=== PATIENT | female | born 1945 | race Caucasian/White ===

== ENCOUNTER 2020-04-20 09:18 | Outpatient (CLI) | payer OTHER, SELFPAY ==
--- NOTE | ~2020-04-20 | US_ITS ---
EXAMINATION: US art doppler w press LE BI DATE: 04/20/2020 11:28 INDICATION: Lower limb pain. TECHNIQUE: Segmental pressures and plethysmographic and Doppler waveforms of the brachial and lower e xtremity arteries were obtained. COMPARISON: None. FINDINGS: Right and left brachial artery pressures of 136 mm Hg and 134 mm Hg, respectively, are concordant (no rmal difference <= 30 mmHg). The right high thigh pressure index is 1.36 and (normal > 1.2). The left high thigh pressure index is unable to be obtained due to inability to occlude the vessels in the le ft thigh. The right ankle-brachial index (ANIYAH) is 1.16 (normal >= 0.9-1). The right great toe-brachial index (T BI) is 0.79 (normal >= 0.6-0.8). The right lower extremity segmental pressure gradients are normal (n ormal gradients <= 20-30 mmHg between adjacent levels on the same leg or the same levels on the two l egs). Arterial waveforms are triphasic at the right common femoral artery and biphasic more distally with brisk systolic upstrokes throughout. The left ANIYAH is 1.12. The left TBI is 0.70. The left lower extremity segmental pressure gradients are normal. Arterial waveforms are biphasic with brisk systolic upstrokes throughout. IMPRESSION: 1. Normal bilateral ABIs and TBIs. No significant occlusive disease. Reviewed, dictated and finalized at location A.
--- NOTE | ~2020-04-20 | US_ITS ---
EXAMINATION: US venous doppler [facility] DATE: 04/20/2020 11:27 INDICATION: Lower limb pain and varicose veins TECHNIQUE: Grayscale ultrasound images without and with compression and Doppler ultrasound images of the bilateral lower extremity veins were obtained. COMPARISON: None. FINDINGS: The visualized portions of right common femoral vein, profunda (deep) femoral vein, femoral vein, pop liteal vein, posterior tibial veins, peroneal veins, gastrocnemius vein and greater saphenous vein ou tflow are patent. Right Standing Venous Mapping: reflux seconds duration; vein size. Greater saphenous origin: 0 seconds; 5.5 mm. Greater saphenous mid thigh:------ 0 seconds; 4.0 mm. Greater saphenous below knee:--- 1.6 seconds; 4.7 mm. Greater saphenous at the ankle:--- 2.2 seconds; 3.7 mm. Lesser saphenous proximally:------ >5 seconds; 4.5 mm. Lesser saphenous distally: >5 seconds; 2.5 mm. The visualized portions of left common femoral vein, profunda femoral vein, femoral vein, popliteal v ein, posterior tibial veins, peroneal veins, gastrocnemius vein and greater saphenous vein outflow ar e patent. Left Standing Venous Mapping: reflux seconds duration; vein size. Greater saphenous origin: 0 seconds; 5.0 mm. Greater saphenous mid thigh:------ 0 seconds; 3.3 mm. Greater saphenous below knee:--- 2.0 seconds; 2.4 mm. Lesser saphenous proximally:------ 0 seconds; 1.6 mm. Lesser saphenous distally: 0 seconds; 2.5 mm. IMPRESSION: 1. No deep venous thrombosis in either lower limb. 2. Significant reflux of >5 second duration in the right lesser saphenous vein. Reviewed, dictated and finalized at location A.
== END 2020-04-20 09:19 | disposition home or self-care (01) ==
PROVIDERS: PCP Internal Medicine; Visit Provider Internal Medicine Cardiovascular Disease
DX: I83.90 Asymptomatic varicose veins of unspecified lower extremity (principal); M79.669 Pain in unspecified lower leg
CPT/HCPCS: 93923; 93970

== ENCOUNTER 2021-01-25 09:07 | Emergency (ER) | payer OTHER, SELFPAY ==
--- NOTE | ~2021-01-25 | XR_ITS ---
EXAMINATION: XR shoulder RT min 2V DATE: 01/25/2021 09:48 INDICATION: Right shoulder injury and pain. TECHNIQUE: 5 views of right shoulder were obtained. COMPARISON: None. FINDINGS: Bone alignment is normal. No fracture. There is mild osteoarthritis of glenohumeral joint a nd moderate osteoarthritis of acromioclavicular joint. IMPRESSION: 1. Polyarticular osteoarthritis. Reviewed, dictated and finalized at location B.
--- NOTE | ~2021-01-25 | XR_ITS ---
EXAMINATION: XR forearm RT 2V DATE: 01/25/2021 09:48 INDICATION: Right forearm injury. TECHNIQUE: 2 views of right forearm were obtained. COMPARISON: None. FINDINGS: Bone alignment is normal. No fracture. There is mild osteoarthritis of the elbow joint and triscaphe joint and moderate osteoarthritis of first carpometacarpal joint. IMPRESSION: 1. Polyarticular osteoarthritis. Reviewed, dictated and finalized at location B.
[2021-01-25 09:12] VITALS: BP 136/90; PULSE 87; RESP 14; TEMP 36.9; O2SAT 99
--- NOTE | 2021-01-25 09:37 | ED.FALL ---
HPI - Fall General Chief Complaint: Fall Stated Complaint: fall Time Seen by Provider: 01/25/21 09:13 History of Present Illness HPI Narrative: 75 yo female presents from home for arm pain. She fell onto her right arm and shoulder 2 days ago. She has had pain in the right shoulder and forearm since that time. The pain is worse with any active movement at the shoulder or elbow. No pain in the elbow. No wound, swelling, weakness, numbness, fever. Related Data Home Medications Medication Instructions Recorded Confirmed cholecalciferol (vitamin D3) 25 1,000 unit PO DAILY 08/17/19 11/25/20 mcg (1,000 unit) capsule coenzyme Q10 100 mg capsule 200 mg PO DAILY cap 08/17/19 11/25/20 lutein 25 mg-zeaxanthin 5 mg cap PO 08/17/19 11/25/20 capsule spironolactone 25 mg tablet 25 mg PO BID 08/17/19 11/25/20 thiamine HCl (vitamin B1) 50 mg 50 mg PO DAILY 08/17/19 11/25/20 tablet vitamins A,C,G-dizw-exidii 14,320 1 cap PO BID 08/01/20 11/25/20 unit-226 mg-200 unit capsule apixaban 5 mg tablet 5 mg PO BID 11/25/20 11/25/20 aspirin 81 mg tablet,delayed 81 mg PO DAILY 11/25/20 11/25/20 release atorvastatin 20 mg tablet 20 mg PO DAILY 11/25/20 11/25/20 diltiazem HCl 120 mg 120 mg PO DAILY 11/25/20 11/25/20 capsule,extended release 24 hr magnesium oxide 400 mg PO DAILY 11/25/20 11/25/20 metformin 750 mg tablet,extended 750 mg PO BID tablet 11/25/20 11/25/20 release 24 hr multivitamin 1 tablet PO DAILY 11/25/20 11/25/20 Allergies Allergy/AdvReac Type Severity Reaction Status Date / Time levetiracetam Allergy Severe Hives Verified 01/25/21 09:18 Review of Systems Review of Systems: All systems reviewed & are unremarkable except as noted in HPI and below Constitutional: Constitutional: Denies chills and Denies fever(s) Eyes: Eyes: Denies no additional eye complaints ENT: Denies dizziness Cardiovascular: Cardiovascular: Denies chest pain Respiratory: Respiratory: Denies dyspnea Gastrointestinal: Gastrointestinal: Denies abdominal pain and Denies nausea Neurologic: Denies dizziness, Denies numbness and Denies weakness [facility] Past Medical History Medical History Aortic valve stenosis Cerebrovascular accident (CVA) Chronic diastolic (congestive) heart failure DM w/o complication type II Edema of extremities Essential (primary) hypertension Gastroesophageal reflux disease Heart murmur Orthostatic hypotension Other and unspecified hyperlipidemia Persistent headaches Primary osteoarthritis involving multiple joints Seizure SK (seborrheic keratosis) Family History Family History Father Family history of Alzheimer's disease Mother Family history of heart disease in male family member before age 55 Social History Social History Smoking status: Never smoker Second hand tobacco smoke exposure: No Alcohol intake: current Substance use: never Substance use type: does not use Exam Const: General: no acute distress and alert Orientation/consciousness: patient oriented x3 HENMT: Head: normal to inspection Neck: Neck: normal visual inspection Resp: Effort & Inspection: normal respiratory effort Auscultation: clear to auscultation bilaterally Cardio: Rate: regular rate Rhythm: regular rhythm Skin: General skin exam: normal color Wounds: no wounds Neuro: General: patient oriented x3, moves all extremities, no focal motor deficits and CN's II-XI intact bilaterally Speech: normal speech Other: Grossly normal strength and sensation throughout. Mildly limited by pain Extrem: Other: Tenderness over right lateral deltoid. ROM limited by pain. Remainder of RUE exam normal. Course Vital Signs Vital signs: Vital Signs Temperature 36.9 C 01/25/21 09:12 Pulse Rate 87 01/25/21 09:12 Respiratory Rate 14 01/25/21 09
[2021-01-25] MEDS: traMADol HCL (*CRX) 50 MG TABLET PO (10:52)
[2021-01-25 11:00] VITALS: BP 138/86; PULSE 92; RESP 16; O2SAT 97
[2021-01-25 12:30] VITALS: BP 145/80; PULSE 83; RESP 20; O2SAT 100
== END 2021-01-25 12:40 | disposition home or self-care (01) ==
PROVIDERS: Emergency Provider Emergency Medicine; PCP Internal Medicine
DX: M79.601 Pain in right arm (principal); M19.90 Unspecified osteoarthritis, unspecified site; I11.0 Hypertensive heart disease with heart failure; I50.9 Heart failure, unspecified; E11.9 Type 2 diabetes mellitus without complications; K21.9 Gastro-esophageal reflux disease without esophagitis; E78.5 Hyperlipidemia, unspecified; Z79.84 Long term (current) use of oral hypoglycemic drugs
CPT/HCPCS: 73030; 73090; 99284; A4565; A9270

== ENCOUNTER 2021-06-27 12:30 | Outpatient (RCR) | payer OTHER, SELFPAY ==
[2021-04-17 13:27] VITALS: BP_SYST 95
--- NOTE | 2021-04-17 16:20 | PTOPEVAL ---
Thank you for referring Alexandria Kirkpatrick to [facility].? The patient is scheduled to be seen for therapy? 2 x/week for 6 weeks. Please review, sign, date and return this plan of care ANGEL. I agree with and certify that the following plan of care is medically necessary. Referring Physician Date Attending Provider: Lester June MD Diagnosis right shoulder DJD sand RTC tendonitis, left ankle instability Onset 01/25/21 Cause fall Additional Evaluation Detail She has a history of a fall in January 2021 landing on her right shoulder. She is inconsistent with using her quad cane or walker at home. She wants to get off the use of a device. She had piriformis syndrome in the past causing her left leg to get messed up . She has a history of a CVA ~ 4 yrs ago. She is a poor historian for medical history or timeline of current impairments. Subjective Information C/o of her right shoulder Query Text:As Reported By Patient/ being messed up . She has Family increased pain with lifting, reaching motion. She is limited with donning/doffing her bra. C/o constant pain in the shoulder joint and into right UE. 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 Denies pian at night. She was in a sling for a few weeks, but stopped due to neck pain. She received an injection on without relief of her pain. Diagnostic Tests X-Rays For This Problem Yes: moderate OA Pain Assessment Right Shoulder(s) Reported Pain Level 3 Pain Description Sharp Pain Frequency Continuous Lowest Pain Intensity 3 Greatest Pain Intensity 9 Pain Aggravating Factors ADL's,Exercise/Activity, Lifting Pain Behaviors Anxious Upper Extremity Range of Motion Scapular/ Shoulder Range of Motion Left Shoulder Flexion - Active 145 Shoulder Extension - Active 50 Shoulder Abduction - Active 145 Shoulder Medial Rotation -
--- NOTE | 2021-05-01 13:53 | PCPTNOTE ---
Patient called & cancelled scheduled appointment this date due to not feeling well.
--- NOTE | 2021-05-11 13:40 | PCPTNOTE ---
Patient called & cancelled scheduled appointment this date due to not feeling up to it today.
[2021-05-23 13:29] VITALS: BP_SYST 102
--- NOTE | 2021-05-24 12:38 | PTOPEVAL ---
Physical Therapy Progress Note Thank you for referring Alexandria Kirkpatrick to [facility].? Alexandria has received 10 therapy visits with 2 missed visits to address UE limitations. She demonstrates improved shoulder motion, improved pain and improved UE function. LE and functional impairments were assessed this date with goals update. The patient is scheduled to be seen for therapy? 2 x/week for 5 weeks. Please review, sign, date and return this plan of care ANGEL. I agree with and certify that the following plan of care is medically necessary. Referring Physician Date Attending Provider: Lester June MD Diagnosis right shoulder DJD sand RTC tendonitis, left ankle instability Onset 01/25/21 Cause fall Additional Evaluation Detail She has a history of a fall in January 2021 landing on her right shoulder. She is inconsistent with using her quad cane or walker at home. She wants to get off the use of a device. She had piriformis syndrome in the past causing her left leg to get messed up . She has a history of a CVA ~ 4 yrs ago. She is a poor historian for medical history or timeline of current impairments. Subjective Information She reports she can reach Query Text:As Reported By Patient/ slightly better at hoom for Family daily task. She has increased pain with lifting her dog of 13-14# due to pain. She is limited with donning/doffing her bra. C/o constant ache/ soreness pain in the shoulder joint. She feels her hands and UE are weak. 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 She has a walker or quad cane, but does not always use an AD at home. She reports her left leg has been an issue since having piriformis syndrome in 2017 on left LE. Her piriformis symptoms improved in 2019. She was using the stationary bike prior to shoulder injury.
--- NOTE | 2021-06-27 14:40 | PTOPEVAL ---
Physical Therapy Discharge Note Thank you for referring Alexandria Kirkpatrick to [facility].?Alexandria has been seen for 15 visits to address shoulder, ankle, hip and balance impairments. She has progressed with her motion, strength and ability to perform functional task. She has achieved most of her therapy goals. Will DC skilled therapy services at this time. Please review, sign, date and return this discharge summary ANGEL. I agree with and certify that the following plan of care is medically necessary. Referring Physician Date Attending Provider: Lester June MD Diagnosis right shoulder DJD sand RTC tendonitis, left ankle instability Onset 01/25/21 Cause fall Additional Evaluation Detail She has a history of a fall in January 2021 landing on her right shoulder. She is inconsistent with using her quad cane or walker at home. She wants to get off the use of a device. She had piriformis syndrome in the past causing her left leg to get messed up . She has a history of a CVA ~ 4 yrs ago. She is a poor historian for medical history or timeline of current impairments. Subjective Information She is only using the quad Query Text:As Reported By Patient/ cane in the community. She Family uses a ww at times in the house. She does feel like she is walking better. She reports improved ability to perform reaching task and ADL's. 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 She is riding the bike 3x/wk without increased pain. Denies any c/o of left ankle pain. Pain Assessment Timing of Pain Assessment Timing of Pain Assessment Pre-Treatment Pain Scale Pain Scale Used Numeric (1 - 10) Self Report Pain Assessment Right Shoulder(s) Reported Pain Level 3 Pain Score Pain Score 3: Self Report Interventions Used Interventions Used By Clinicians Education,Exercise Upper Extremity Range of Motion Scapular/ Shoulder Range of Motion Left Shoulder Flexion - Active 145 Shoulder Extension - Active 55 Shoulder Abduction - Active 145 Shoulder Medial Rotation - Active T7:Reach Behind the Back Shoulder Lateral
== END 2021-06-27 17:44 | disposition home or self-care (01) ==
LOC: ANHPT 12:30
PROVIDERS: PCP Internal Medicine; Visit Provider Orthopaedic Surgery
DX: M19.011 Primary osteoarthritis, right shoulder (principal); M75.81 Other shoulder lesions, right shoulder
CPT/HCPCS: 97110; 97140; 97163; 97530

== ENCOUNTER 2021-06-30 08:04 | Outpatient (CLI) | payer OTHER, SELFPAY ==
--- NOTE | ~2021-06-30 | DEXA_ITS ---
Bone Density Report Name: Alexandria Kirkpatrick Age: 76 Sex: Female Ethnicity: White Date of : 1945 Indication: postmenopausal; height loss; prior fracture; asthma or emphysema; hysterectomy; Referring Provider: Iliana Lujan Study: Bone densitometry was performed. Exam Date: June 30, 2021 Accession number: [id number] Bone Density: Region BMD T-score Z-score Classification AP Spine (L1-L4) 0.864 -1.7 0.8 Osteopenia Femoral Neck (Left) 0.536 -2.8 -0.7 Osteoporosis Total Hip (Left) 0.760 -1.5 0.4 Osteopenia Total Hip Bilateral Avg 0.741 -1.7 0.2 Osteopenia Femoral Neck (Right) 0.583 -2.4 -0.3 Osteopenia Total Hip (Right) 0.720 -1.8 0.0 Osteopenia World Health Organization criteria for BMD impression classify patients as: Normal (T-score at or above -1.0), Osteopenia (T-score between -1.0 and -2.5), or Osteoporosis (T-score at or below -2.5). 10-year Fracture Risk: FRAX not reported because: Some T-score for Spine Total or Hip Total or Femoral Neck at or below -2.5 Previous Exams: Region Exam Age BMD T-score BMD Change BMD Change Date g/cm2 vs Baseline vs Previous AP Spine(L1-L4) 06/30/2021 76 0.864 -1.7 -0.100(-10.4%) -0.074(-7.9%)# 11/11/2012 67 0.938 -1.0 -0.025(-2.6%)# -0.026(-2.7%)# 10/16/2006 61 0.964 -0.8 0.001(0.1%) 0.001(0.1%) 12/12/2002 57 0.964 -0.8 Total Hip(Left) 06/30/2021 76 0.760 -1.5 -0.280(-26.9%) -0.187(-19.8%) 11/11/2012 67 0.947 0.0 -0.092(-8.9%)# 0.068(7.7%)# 10/16/2006 61 0.879 -0.5 -0.160(-15.4%) -0.160(-15.4%) 12/12/2002 57 1.039 0.8 Total Hip(Right) 06/30/2021 76 0.720 -1.8 -0.360(-33.3%) -0.114(-13.6%) 11/11/2012 67 0.834 -0.9 -0.246(-22.8%) -0.022(-2.6%)# 10/16/2006 61 0.857 -0.7 -0.224(-20.7%) -0.224(-20.7%) 12/12/2002 57 1.081 1.1 *Denotes significance at 95% confidence level, LSC for AP Spine = 0.022 g/cm2, LSC for Total Hip = 0.027 g/cm2 Clinical Information Provided by Patient: Has had a low trauma fracture Has used the following medications: Calcium Has the following medical conditions: Asthma or Emphysema, Hysterectomy Patient maximum height was 66 Menopause Age: 54 No regular weight bearing exercise Onset of menses at age 13 Number of children 2 Impression: The patient has established osteoporosis, based on the Left Femoral Neck T-score and the existence of a prior fracture. The patient has risk factors, including: previous
--- NOTE | ~2021-06-30 | MM_ITS ---
EXAMINATION: MM screening [facility] BI w mary lou HISTORY: Screening TECHNIQUE: Craniocaudal and mediolateral oblique 3-D tomosynthesis images were obtained and synthetic 2-D images were generated. CAD analysis was submitted and interpreted. COMPARISON: Comparison to multiple prior studies sequentially, with oldest reviewed study dated 11/11. BREAST PARENCHYMAL COMPOSITION: There are scattered areas of fibroglandular density. FINDINGS: There is no evidence of suspicious mass, calcification, or architectural distortion to sugg est malignancy in either breast. There has been no suspicious interval change. IMPRESSION: 1. No mammographic evidence of malignancy. 2. Recommend routine screening mammography in one year. BI-RADS Category 1: Negative Reviewed, dictated and finalized at location A.
== END 2021-06-30 08:05 | disposition home or self-care (01) ==
PROVIDERS: PCP Internal Medicine; Visit Provider Nurse Practitioner
DX: Z12.31 Encounter for screening mammogram for malignant neoplasm of breast (principal); Z78.0 Asymptomatic menopausal state; M85.88 Other specified disorders of bone density and structure, other site; M81.0 Age-related osteoporosis without current pathological fracture; M85.852 Other specified disorders of bone density and structure, left thigh; M85.851 Other specified disorders of bone density and structure, right thigh
CPT/HCPCS: 77063; 77067; 77080

== ENCOUNTER 2022-09-18 09:46 | Outpatient (CLI) | payer OTHER, SELFPAY ==
--- NOTE | ~2022-09-18 | MM_ITS ---
EXAMINATION: MM screening [facility] BI w mary lou HISTORY: Screening mammogram TECHNIQUE: Craniocaudal and mediolateral oblique 3-D tomosynthesis images were obtained and synthetic 2-D images were generated. CAD analysis was submitted and interpreted. COMPARISON: 06/30/2021, 06/17/2019, 09/18/2017 BREAST PARENCHYMAL COMPOSITION: There are scattered areas of fibroglandular density. FINDINGS: No suspicious mass, calcification, or architectural distortion are identified in either ivonne ast to suggest malignancy. There has been no suspicious interval change. IMPRESSION: 1. No mammographic evidence of malignancy. 2. Recommend routine screening mammography in one year. BI-RADS Category 1: Negative Reviewed, dictated and finalized at location A. 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
== END 2022-09-18 09:47 | disposition home or self-care (01) ==
LOC: ANHIMG 09:47
PROVIDERS: PCP Internal Medicine; Visit Provider Internal Medicine
DX: Z12.31 Encounter for screening mammogram for malignant neoplasm of breast (principal)
CPT/HCPCS: 77063; 77067

== ENCOUNTER 2023-07-24 13:50 | Outpatient (CLI) | payer OTHER, SELFPAY ==
--- NOTE | ~2023-07-24 | US_ITS ---
EXAMINATION: US art doppler w press LE BI DATE: 07/24/2023 18:46 INDICATION: Peripheral vascular disease. TECHNIQUE: Segmental pressures and plethysmographic and Doppler waveforms of the brachial and lower e xtremity arteries were obtained. COMPARISON: Arterial Doppler and segmental pressures 04/20/20 FINDINGS: Right and left brachial artery pressures of 138 mm Hg and 127 mm Hg, respectively, are concordant (no rmal difference <= 30 mmHg). The right thigh pressures could not be measured due to inability to cuff occlude the arteries. The ri t ankle-brachial index (ANIYAH) is 1.20 (normal >= 0.9-1.0). The right great toe-brachial index (TBI) is 0.33 (normal >= 0.65). Arterial Doppler waveforms are biphasic from common femoral artery to the a nkle. The left high-thigh pressure index could not be measured due to inability to cuff occlude the arterie s. The lower thigh pressure index is 1.02. The left ANIYAH is 0.97. The left TBI is 0.55. Arterial Doppl er waveforms are biphasic from common femoral artery to the ankle. IMPRESSION: 1. Normal right ANIYAH, decreased right TBI, mildly decreased left ANIYAH, and decreased left TBI, consiste nt with arterial occlusive disease, worsened from 04/20/2020. Reviewed, dictated and finalized at location E. 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 Normal right ANIYAH, decreased right TBI, mildly decreased left ANIYAH, and decrea sed left TBI, consistent with arterial occlusive disease, worsened from 0.
== END 2023-07-24 13:51 | disposition home or self-care (01) ==
PROVIDERS: PCP Family Medicine; Visit Provider Podiatrist Foot & Ankle Surgery
DX: I73.9 Peripheral vascular disease, unspecified (principal)
CPT/HCPCS: 93923

== ENCOUNTER 2023-08-01 09:45 | Outpatient (RCR) | payer OTHER, SELFPAY | END 2023-08-12 18:56 | disposition home or self-care (01) | LOC: ANHCPREHAB 09:45 | PROVIDERS: PCP Family Medicine; Visit Provider Internal Medicine Cardiovascular Disease | DX: Z95.2 Presence of prosthetic heart valve (principal) | CPT/HCPCS: 93798 ==

== ENCOUNTER 2023-08-05 12:10 | Emergency (ER) | payer OTHER, SELFPAY ==
--- NOTE | 2023-08-05 12:23 | ED.WOUNDLAC ---
HPI - Wound/Laceration General Chief Complaint: Wound/Laceration Stated Complaint: Left Hand Finger Laceration Time Seen by Provider: 08/05/23 12:41 Source: patient and RN notes reviewed Mode of arrival: ambulatory Limitations: no limitations History of Present Illness HPI narrative: 78-year-old female presents with concern for laceration to the 2nd digit of her left hand that happened this morning at 8:00 a.m. when she was slicing an [place] muffin. She does take a blood thinner and was having trouble getting it to stop bleeding. Her last tetanus shot was in 2019. She denies any decreased sensation, strength, range of motion of the digit Related Data Home Medications Medication Instructions Recorded Confirmed vitamins A,C,C-duxx-aekpmj 4,296 1 cap PO BID 08/01/20 06/06/23 mcg-226 mg-90 mg capsule (PreserVision AREDS) apixaban 5 mg tablet (Eliquis) 5 mg PO BID 11/25/20 06/06/23 diltiazem HCl 120 mg 120 mg PO DAILY 11/25/20 06/06/23 capsule,extended release 24 hr magnesium oxide 400 mg PO DAILY 11/25/20 06/06/23 multivitamin 1 tablet PO DAILY 11/25/20 06/06/23 nut.tx.glucose intolerance,soy ea PO 04/04/21 06/06/23 (Glucerna oral bar) spironolactone 25 mg tablet 25 mg PO BID 06/27/22 06/06/23 aflibercept 2 mg/0.05 mL 2 mg intravitreal ONCE 02/28/23 06/06/23 intravitreal solution for injection (Eylea) Allergies Allergy/AdvReac Type Severity Reaction Status Date / Time levetiracetam Allergy Severe Hives Verified 06/06/23 08:08 Review of Systems Review of Systems: CONSTITUTIONAL: Denies malaise, chills, sweats, or fever. SKIN: Reports laceration to the 2nd digit of the left hand MUSCULOSKELETAL: Denies muscle skeletal pain NEUROLOGIC: Denies numbness, weakness All systems reviewed & are unremarkable except as noted in HPI and below PMFSH Past Medical History Medical History Acquired absence of ovaries, bilateral Afib Aortic valve stenosis Arthritis Cerebrovascular accident (CVA) CHF (congestive heart failure), NYHA class I Chronic diastolic (congestive) heart failure COVID-19 Diabetes DJD of shoulder DM w/o complication type II Edema of extremities Essential (primary) hypertension Gastroesophageal reflux disease Heart murmur Orthostatic hypotension MASOUD (obstructive sleep apnea) Other and unspecified hyperlipidemia Persistent headaches Primary osteoarthritis involving multiple joints Right shoulder pain Seizure Serous cystadenoma SK (seborrheic keratosis) Trochanteric bursitis of left hip Trochanteric bursitis, left hip Wears glasses Surgical History Surgical History History of heart surgery History of knee replacement Family History Family History Father Family history of Alzheimer's disease Mother Family history of heart disease in male family member before age 55 Other Arthritis Social History Social History (Updated 06/06/23 @ 08:22 by Elisha Dimas MA) Smoking status: Never smoker Second hand tobacco smoke exposure: No Alcohol intake: never Substance use: never Substance use type: does not use Lack of Transportation: No Lack of Food: Never True Current Housing: I Have Housing Concerned About Future Housing: No Difficulty Paying Gas/Electric Bills: No Difficulty Paying for Meds: No Currently Unemployed: No Education: Associate Degree Difficulty w/ Childcare or Family Care: No Comments At time of signature, agree with nursing past medical, surgical, social and family history. There is no relevant family history pertinent to the presenting complaint Exam Narrative: GENERAL: Well-appearing, well-nourished, and in no acute distress. HEAD: Normocephalic, atraumatic. EYES: PERRLA, conjunctivae clear ENT: Mucous membranes moist. NECK: Supple. No lymphadenopathy CHEST:
[2023-08-05 12:33] VITALS: BP 98/70; PULSE 73; RESP 16; TEMP 36.9; O2SAT 100
== END 2023-08-05 12:55 | disposition home or self-care (01) ==
PROVIDERS: Emergency Provider Nurse Practitioner; PCP Family Medicine
DX: S61.211A Laceration without foreign body of left index finger without damage to nail, initial encounter (principal); I48.91 Unspecified atrial fibrillation; I11.0 Hypertensive heart disease with heart failure; I50.9 Heart failure, unspecified; E11.9 Type 2 diabetes mellitus without complications; Z79.01 Long term (current) use of anticoagulants; Z86.73 Personal history of transient ischemic attack (TIA), and cerebral infarction without residual deficits; W26.0XXA Contact with knife, initial encounter
CPT/HCPCS: 12001; 99212; G0463

== ENCOUNTER 2024-04-18 11:24 | Emergency (ER) | payer OTHER, SELFPAY ==
[2024-04-18 11:34] VITALS: BP 124/77; PULSE 87; RESP 16; TEMP 36.2; O2SAT 98
--- NOTE | 2024-04-18 11:47 | ED.URI ---
HPI - URI/Sore Throat General Chief Complaint: Upper Respiratory Infection Stated Complaint: Cough/Congestion Time Seen by Provider: 04/18/24 12:00 Source: patient and RN notes reviewed Mode of arrival: ambulatory Limitations: no limitations History of Present Illness HPI Narrative: 79-year-old female presents with concern of for cough, general malaise, fatigue for 1 week. Reports her has similar symptoms. She reports she just finished a steroid for a different issue. MD elicited complaint: cough Related Data Home Medications Medication Instructions Recorded Confirmed vitamins A,C,L-ketv-wvycuh 4,296 1 cap PO BID 08/01/20 04/18/24 mcg-226 mg-90 mg capsule (PreserVision AREDS) apixaban 5 mg tablet (Eliquis) 5 mg PO BID 11/25/20 04/18/24 diltiazem HCl 120 mg 120 mg PO DAILY 11/25/20 04/18/24 capsule,extended release 24 hr magnesium oxide 400 mg PO DAILY 11/25/20 04/18/24 multivitamin 1 tablet PO DAILY 11/25/20 04/18/24 spironolactone 25 mg tablet 25 mg PO BID 06/27/22 04/18/24 aflibercept 2 mg/0.05 mL 2 mg intravitreal ONCE 02/28/23 04/18/24 intravitreal solution for injection (Eylea) tramadol 50 mg tablet 100 mg PO Q8H PRN pain 04/07/24 04/18/24 Allergies Allergy/AdvReac Type Severity Reaction Status Date / Time levetiracetam Allergy Severe Hives Verified 04/18/24 11:50 Review of Systems Review of Systems: CONSTITUTIONAL: Denies malaise, chills, sweats, or fever. EYES: Denies visual changes, redness, or discharge. ENT: Reports rhinorrhea, congestion, sinus pain, otalgia and sore throat. CARDIOVASCULAR: Denies chest pain, palpitations, or edema. RESPIRATORY: Reports cough. Denies dyspnea. GASTROINTESTINAL: Denies abdominal pain, nausea, vomiting, diarrhea SKIN: Denies rash or itching. MUSCULOSKELETAL: Denies myalgia. NEUROLOGIC: Denies headache. 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 type II ZARAGOZA (dyspnea on exertion) Edema of extremities Essential (primary) hypertension Gastroesophageal reflux disease Heart murmur Left leg swelling Orthostatic hypotension MASOUD (obstructive sleep apnea) Other and unspecified hyperlipidemia Persistent headaches Postmenopausal Primary osteoarthritis involving multiple joints Seizure Serous cystadenoma SK (seborrheic keratosis) SOB (shortness of breath) Trochanteric bursitis of left hip Wears glasses Surgical History Surgical History History of heart surgery History of knee replacement Family History Family History Father Family history of Alzheimer's disease Mother Family history of heart disease in male family member before age 55 Other Arthritis Social History Social History Smoking status: Never smoker Second hand tobacco smoke exposure: No Alcohol intake: never Substance use: never Substance use type: does not use Lack of Transportation: No Lack of Food: Never True Current Housing: I Have Housing Concerned About Future Housing: No Difficulty Paying Gas/Electric Bills: No Difficulty Paying for Meds: No Currently Unemployed: No Education: Associate Degree Difficulty w/ Childcare or Family Care: No Comments At time of signature, agree with nursing past medical, surgical, social and family history. There is no relevant family history pertinent to the presenting complaint Exam Narrative: GENERAL: Nontoxic-appearing, well-nourished, and in no acute distress. HEAD: No
== END 2024-04-18 12:25 | disposition home or self-care (01) ==
PROVIDERS: Emergency Provider Nurse Practitioner; PCP Family Medicine
DX: J22 Unspecified acute lower respiratory infection (principal); I48.91 Unspecified atrial fibrillation; I35.0 Nonrheumatic aortic (valve) stenosis; M19.90 Unspecified osteoarthritis, unspecified site; Z86.73 Personal history of transient ischemic attack (TIA), and cerebral infarction without residual deficits; I11.0 Hypertensive heart disease with heart failure; I50.32 Chronic diastolic (congestive) heart failure; K21.9 Gastro-esophageal reflux disease without esophagitis; R01.1 Cardiac murmur, unspecified; E78.5 Hyperlipidemia, unspecified; Z86.16 Personal history of COVID-19
CPT/HCPCS: 99213; G0463

== ENCOUNTER 2024-05-20 14:13 | Outpatient (CLI) | payer OTHER, SELFPAY ==
--- NOTE | ~2024-05-20 | MM_ITS ---
EXAMINATION: MM screening marlene BI w mary lou HISTORY: Screening TECHNIQUE: Craniocaudal and mediolateral oblique 3-D tomosynthesis images were obtained and synthetic 2-D images were generated. CAD analysis was submitted and interpreted. COMPARISON: . Comparison to multiple prior studies sequentially, with oldest reviewed study dated . BREAST PARENCHYMAL COMPOSITION: Not dense: There are scattered areas of fibroglandular density. FINDINGS: There is no evidence of suspicious mass, calcification, or architectural distortion to sugg est malignancy in either breast. There has been no suspicious interval change. IMPRESSION: 1. No mammographic evidence of malignancy. 2. Recommend routine screening mammography in one year. BI-RADS Category 1: Negative Reviewed, dictated and finalized at location B.
== END 2024-05-20 14:14 | disposition home or self-care (01) ==
LOC: ANHIMG 14:16
PROVIDERS: PCP Family Medicine; Visit Provider Family Medicine
DX: Z12.31 Encounter for screening mammogram for malignant neoplasm of breast (principal)
CPT/HCPCS: 77063; 77067

== ENCOUNTER 2024-09-28 10:10 | Emergency (ER) | payer OTHER, SELFPAY ==
[2024-09-28 10:21] VITALS: BP 133/87; PULSE 77; RESP 20; TEMP 36.8; O2SAT 100
--- NOTE | 2024-09-28 10:21 | ED.URI ---
HPI - URI/Sore Throat General Chief Complaint: Upper Respiratory Infection Stated Complaint: Chest Congestion Time Seen by Provider: 09/28/24 10:52 Source: patient and RN notes reviewed Mode of arrival: ambulatory Limitations: no limitations History of Present Illness HPI Narrative: 79-year-old female presents with concern for 2 week history of sinus congestion, pressure, cough, general malaise. Reports she has been taking Delsym with very temporary mild relief. She denies shortness of breath or fever MD elicited complaint: cough and sinus pain Related Data Home Medications ?Medication ?Instructions ?Recorded ?Confirmed ?Last Taken ?Type vitamins A,C,L-kiou-wgtsvs 4,296 1 cap PO BID 08/01/20 04/28/24 Unknown History mcg-226 mg-90 mg capsule (PreserVision AREDS) apixaban 5 mg tablet (Eliquis) 5 mg PO BID 11/25/20 04/28/24 Unknown History diltiazem HCl 120 mg 120 mg PO DAILY 11/25/20 04/28/24 Unknown History capsule,extended release 24 hr magnesium oxide 400 mg PO DAILY 11/25/20 04/28/24 Unknown History multivitamin 1 tablet PO DAILY 11/25/20 04/28/24 Unknown History spironolactone 25 mg tablet 25 mg PO BID 06/27/22 04/28/24 Unknown History aflibercept 2 mg/0.05 mL 2 mg intravitreal ONCE 02/28/23 04/28/24 Unknown History intravitreal solution for injection (Eylea) Allergies Allergy/AdvReac Type Severity Reaction Status Date / Time levetiracetam Allergy Severe Hives Verified 09/28/24 10:39 Review of Systems Review of Systems: CONSTITUTIONAL: Reports malaise. Denies chills, sweats, or fever. EYES: Denies visual changes, redness, or discharge. ENT: Reports rhinorrhea, congestion, sinus pain CARDIOVASCULAR: Denies chest pain, palpitations, or edema. RESPIRATORY: Reports cough. Denies dyspnea. GASTROINTESTINAL: Denies abdominal pain, nausea, vomiting, diarrhea SKIN: Denies rash or itching. MUSCULOSKELETAL: Denies myalgia. NEUROLOGIC: Denies headache. All systems reviewed & are unremarkable except as noted in HPI and below PMFSH Past Medical History Medical History (Updated 09/28/24 @ 10:59 by Madelyn Conley NP) COVID-19 Postmenopausal Arthritis Diabetes CHF (congestive heart failure), NYHA class I Afib MASOUD (obstructive sleep apnea) Wears glasses Acquired absence of ovaries, bilateral Serous cystadenoma Trochanteric bursitis of left hip Left leg swelling Aortic valve stenosis Cerebrovascular accident (CVA) Chronic diastolic (congestive) heart failure Cough ZARAGOZA (dyspnea on exertion) Edema of extremities Essential (primary) hypertension Gastroesophageal reflux disease Heart murmur Orthostatic hypotension Other and unspecified hyperlipidemia Persistent headaches Primary osteoarthritis involving multiple joints SK (seborrheic keratosis) SOB (shortness of breath) Seizure DM w/o complication type II Surgical History Surgical History History of heart surgery History of knee replacement Family History Family History Father Family history of Alzheimer's disease Mother Family history of heart disease in male family member before age 55 Other Arthritis Social History Social History Smoking status: Never smoker Second hand tobacco smoke exposure: No Alcohol intake: never Substance use: never Substance use type: does not use Lack of Transportation: No Lack of Food: Never True Current Housing: I Have Housing Concerned About Future Housing: No Difficulty Paying Gas/Electric Bills: No Difficulty Paying for Meds: No Currently Unemployed: No Education: Associate Degree Difficulty w/ Childcare or Family Care: No Comments At time of signature, agree with nursing past medical, surgical, social and family history. There is no relevant family history pertinent to the presenting complaint Exam Narrative: GENERAL: Nontoxic-appearing, well-nourished, and in no acute distress. HEAD: Normocephalic EYES: PERRLA, conjunctivae clear ENT: Nares clear. Mucous membranes moist. TM pearly be with dull light reflex bilaterally; no tragal tenderness. Oropharynx not erythematous without lesions. Tonsils not enlarged and without exudate, no drooling, no hoarseness, no trismus, uvula midline. NECK: Supple. No lymphadenopathy CHEST: Clear to auscultation, breath sounds equal. No wheezing, rhonchi, rales, or stridor. No respiratory distress, speaks in full sentences. HEART: Regular rate and rhythm. No murmur heard. SKIN: Warm, dry, no rash. NEURO: Alert and oriented x3. PSYCH: Normal mood and affect Course Course Emergency Course: Patient is aware of diagnosis, understands and agrees to treatment plan. Anticipatory guidance given. Patient agrees to follow-up as directed and is aware of reasons to seek care at the emergency department. Portions of this record may have been created with voice recognition software Level of Care: Express Care Visit Vital Signs Vital signs: Reviewed. MDM - URI/Sore Throat MDM Narrative Medical decision making narrative: Differential diagnosis considered: Sharma virus, strep pharyngitis, allergic rhinitis, upper respiratory tract infection, sinusitis, rhinosinusitis, nasopharyngitis. viral pharyngitis, otitis media, otitis externa, pneumonia, bronchitis, viral cough syndrome, viral syndrome, and influenza. Exam findings show no acute concerns or changes; patient is non-toxic appearing and is in no distress. Patient is appropriate for outpatient treatment and follow-up. Lab Data Attestation: I reviewed the patient's lab results. Critical Care Time Critical Care Time Critical Care Time: No Discharge Plan Discharge Clinical Impression: Sinobronchitis Patient Disposition: Home, Self-Care Condition: Stable Instructions: Antibiotic Form, Acute Cough (ED) Additional Instructions: Take medication as prescribed Recommend antihistamine such as Benadryl at night time and Zyrtec or Lydia during the day Also, recommend symptomatic treatment includes: rest, fluids, and increase humidity of the air at home. Recommend Acetaminophen as directed on the bottle to reduce fever, pain, headache. Avoid smoking/second-hand smoke. Please schedule a follow-up visit with your personal physician for further evaluation and treatment within 3-5days. If your symptoms persist, change or worsen significantly before you can contact your personal physician then please, without delay, go to the emergency department for further evaluation. Patient Language: Tamazight Prescriptions: New doxycycline monohydrate 100 mg tablet 100 mg PO BID 7 Days Qty: 14 0RF methylprednisolone [Medrol ([place])] 4 mg tablets,dose pack See Rx Instructions .ROUTE .COMPLEX Qty: 21 0RF Rx Instructions: orally per package directions No Action Jardiance 10 mg tablet 10 mg PO DAILY Qty: 1 0RF calcium carbonate [Calcium 600] 600 mg calcium (1,500 mg) tablet 600 mg PO DAILY Qty: 30 0RF coenzyme Q10 [Co Q-10] 10 mg capsule 10 mg PO ONCE Qty: 1 0RF cholecalciferol (vitamin D3) [Vitamin D3] 50 mcg (2,000 unit) capsule 50 mcg PO DAILY Qty: 1 0RF hydrocortisone [Anti-Itch (HC)] 1 % cream 1 applic topical BID PRN (Reason: itching) Qty: 28.35 0RF Eylea 2 mg/0.05 mL solution 2 mg intravitreal ONCE PreserVision AREDS 14,320-226-200 gdbu-ha-rwhr capsule 1 cap PO BID Eliquis 5 mg tablet 5 mg PO BID diltiazem HCl 120 mg capsule,extended release 24hr 120 mg PO DAILY magnesium oxide 400 mg magnesium capsule 400 mg PO DAILY multivitamin Tablet 1 tablet PO DAILY spironolactone 25 mg tablet 25 mg PO BID scopolamine base 1 mg over 3 days patch 3 day 1 patch transdermal Q3D PRN (Reason: motion sickness) Qty: 24 2RF buspirone 5 mg tablet 5 mg PO BID Qty: 180 1RF lancing device with lancets [Accu-Chek FastClix Lancing Dev] Kit See Rx Instructions .ROUTE .COMPLEX Qty: 1 0RF Dose Instruction: USE DIRECTED Rx Instructions: USE DIRECTED mupirocin 2 % ointment 1 applic topical BID Qty: 22 0RF silver sulfadiazine [SSD] 1 % cream See Rx Instructions .ROUTE .COMPLEX Qty: 85 0RF Dose Instruction: APPLY TO THE AFFECTED AREA TWICE DAILY Rx Instructions: APPLY TO THE AFFECTED AREA TWICE DAILY (DME) OneTouch Verio test strips Strip See Rx Instructions .Route Qty: 100 3RF Rx Instructions: Check blood glucose 1xday valacyclovir 500 mg tablet See Rx Instructions .ROUTE .COMPLEX PRN (Reason: cold sores) Qty: 30 3RF Dose Instruction: TAKE 1 TABLET BY MOUTH TWICE DAILY Rx Instructions: TAKE 1 TABLET BY MOUTH TWICE DAILY PRN; benzonatate 200 mg capsule 200 mg PO TID PRN (Reason: cough) Qty: 14 0RF sertraline 100 mg tablet 100 mg PO DAILY Qty: 90 1RF Rx Instructions: take w/ 50 mg tablet sertraline 50 mg tablet 50 mg PO DAILY Qty: 90 1RF Rx Instructions: take w/ 100 mg tablet metformin 750 mg tablet extended release 24 hr See Rx Instructions .ROUTE .COMPLEX Qty: 180 0RF Dose Instruction: TAKE 1 TABLET BY MOUTH TWICE DAILY Rx Instructions: TAKE 1 TABLET BY MOUTH TWICE DAILY atorvastatin 20 mg tablet 20 mg PO DAILY Qty: 90 1RF montelukast 10 mg tablet See Rx Instructions .ROUTE .COMPLEX Qty: 90 0RF Dose Instruction: TAKE 1 TABLET BY MOUTH DAILY Rx Instructions: TAKE 1 TABLET BY MOUTH DAILY alendronate 70 mg tablet See Rx Instructions .ROUTE .COMPLEX Qty: 12 0RF Dose Instruction: TAKE 1 TABLET BY MOUTH WEEKLY Rx Instructions: TAKE 1 TABLET BY MOUTH WEEKLY (DME) lancets [Accu-Chek Fastclix Lancet Drum] [facility] See Rx Instructions .ROUTE .COMPLEX Qty: 102 0RF Dose Instruction: USE DIRECTED DAILY Rx Instructions: USE DIRECTED DAILY omeprazole 40 mg capsule,delayed release(DR/EC) 40 mg PO BID Qty: 180 1RF ferrous sulfate [FeroSul] 325 mg (65 mg iron) tablet See Rx Instructions .ROUTE .COMPLEX Qty: 90 0RF Dose Instruction: TAKE 1 TABLET BY MOUTH DAILY Rx Instructions: TAKE 1 TABLET BY MOUTH DAILY alprazolam 0.25 mg tablet 0.25 mg PO TID PRN (Reason: anxiety) Qty: 90 0RF tramadol 50 mg tablet 100 mg PO Q8H PRN (Reason: pain) Qty: 180 0RF Follow-up/Referrals: Karis Murcia APRN [Primary Care Provider] - Time of Disposition: 11:00
== END 2024-09-28 11:07 | disposition home or self-care (01) ==
PROVIDERS: Emergency Provider Nurse Practitioner; PCP Nurse Practitioner Family
DX: J32.9 Chronic sinusitis, unspecified (principal); J40 Bronchitis, not specified as acute or chronic; E11.9 Type 2 diabetes mellitus without complications; I48.91 Unspecified atrial fibrillation; I11.0 Hypertensive heart disease with heart failure; I50.32 Chronic diastolic (congestive) heart failure; I35.0 Nonrheumatic aortic (valve) stenosis; K21.9 Gastro-esophageal reflux disease without esophagitis; R01.1 Cardiac murmur, unspecified; E78.49 Other hyperlipidemia; M15.9 Polyosteoarthritis, unspecified; Z79.01 Long term (current) use of anticoagulants
CPT/HCPCS: 99213; G0463

== ENCOUNTER 2025-05-07 13:19 | Outpatient (CLI) | payer OTHER, SELFPAY ==
--- NOTE | ~2025-05-07 | US_ITS ---
US thyroid INDICATION: Thyroid nodule TECHNIQUE: Real-time sonographic images of the thyroid gland were obtained. COMPARISON: Comparison to thyroid ultrasound dated 02/14/2011 FINDINGS: The right thyroid lobe measures 3.9 x 1.3 x 1.1 cm. The left thyroid lobe measures 3.7 x 1 x 0.8 cm. There is normal echotexture and echogenicity throughout the thyroid gland. In the right lobe there is a benign 2 mm cyst. In the isthmus on the left there is a solid hypoechoic 9 mm mass which is wider than tall, smoothly marginated without echogenic foci, TR 4. Normal vascular flow is present. IMPRESSION: 1. Isthmus mass measuring 9 mm, likely benign. This mass does not meet sonographic criteria for biopsy. Consider follow-up ultrasound in 12 months. Reviewed, dictated and finalized at location O. IMPRESSION: 1. Isthmus mass measuring 9 mm, likely benign. This mass does not meet sonogra phic criteria for biopsy. Consider follow-up ultrasound in 12 months.
== END 2025-05-07 13:20 | disposition home or self-care (01) ==
LOC: MICIMG 13:21
PROVIDERS: PCP Nurse Practitioner Family; Visit Provider Nurse Practitioner Family
DX: E04.1 Nontoxic single thyroid nodule (principal)
CPT/HCPCS: 76536

== ENCOUNTER 2025-05-13 11:22 | Emergency (ER) | payer OTHER, SELFPAY ==
[2025-05-13 11:39] VITALS: BP 130/87; PULSE 89; RESP 16; TEMP 35.9; O2SAT 98
--- NOTE | 2025-05-13 11:41 | ED.URI ---
HPI - URI/Sore Throat General Chief Complaint: Upper Respiratory Infection Stated Complaint: COUGH/SNEEZING/NOT SLEEPING Source: patient and RN notes reviewed Mode of arrival: ambulatory Limitations: no limitations History of Present Illness HPI Narrative: 72 y/o male presented for c/o nasal congestion, cough, and sore throat over several weeks. Endorses cough is worse at night and keeping her up at night. Denies sob, wheezing, cp, fatigue or lethargy, n/v/d/f/c. Taking Delsym. MD elicited complaint: cough Related Data Home Medications ?Medication ?Instructions ?Recorded ?Confirmed ?Last Taken ?Type vitamins A,C,H-ubsc-eyhxpx 4,296 1 cap PO BID 08/01/20 03/31/25 Unknown History mcg-226 mg-90 mg capsule (PreserVision AREDS) apixaban 5 mg tablet (Eliquis) 5 mg PO BID 11/25/20 03/31/25 Unknown History diltiazem HCl 120 mg 120 mg PO DAILY 11/25/20 03/31/25 Unknown History capsule,extended release 24 hr magnesium oxide 400 mg PO DAILY 11/25/20 03/31/25 Unknown History multivitamin 1 tablet PO DAILY 11/25/20 03/31/25 Unknown History spironolactone 25 mg tablet 25 mg PO BID 06/27/22 03/31/25 Unknown History aflibercept 2 mg/0.05 mL 2 mg intravitreal ONCE 02/28/23 03/31/25 Unknown History intravitreal solution for injection (Eylea) aflibercept-ayyh 2 mg/0.05 mL mg 05/13/25 Unknown History intravitreal syringe (Pavblu) Allergies Allergy/AdvReac Type Severity Reaction Status Date / Time levetiracetam Allergy Severe Hives Verified 05/13/25 11:53 Review of Systems Review of Systems: CONSTITUTIONAL: denies malaise, body aches, chills, sweats, fever EYES: Denies visual changes, redness, or discharge ENT: Reports rhinorrhea, congestion, sore throat CARDIOVASCULAR: Denies chest pain, palpitations, edema RESPIRATORY: Reports cough, post nasal drainage. Denies dyspnea GASTROINTESTINAL: Denies abdominal pain, nausea, vomiting, diarrhea SKIN: Denies rash or itching NEUROLOGIC: Denies headache PMFSH Past Medical History Medical History COVID-19 Postmenopausal Arthritis Diabetes CHF (congestive heart failure), NYHA class I Afib MASOUD (obstructive sleep apnea) Wears glasses Acquired absence of ovaries, bilateral Serous cystadenoma Trochanteric bursitis of left hip Left leg swelling Aortic valve stenosis Cerebrovascular accident (CVA) Chronic diastolic (congestive) heart failure Cough ZARAGOZA (dyspnea on exertion) Edema of extremities Essential (primary) hypertension Gastroesophageal reflux disease Heart murmur Orthostatic hypotension Other and unspecified hyperlipidemia Persistent headaches Primary osteoarthritis involving multiple joints SK (seborrheic keratosis) SOB (shortness of breath) Seizure DM w/o complication type II Surgical History Surgical History History of heart surgery History of knee replacement Family History Family History Father Family history of Alzheimer's disease Mother Family history of heart disease in male family member before age 55 Other Arthritis Social History Social History Smoking status: Never smoker Second hand tobacco smoke exposure: No Alcohol intake: never Substance use: never Substance use type: does not use Lack of Transportation: No Lack of Food: Never True Current Housing: I Have Housing Concerned About Future Housing: No Difficulty Paying Gas/Electric Bills: No Difficulty Paying for Meds: No Currently Unemployed: No Education: Associate Degree Difficulty w/ Childcare or Family Care: No Exam Narrative: GENERAL: well-appearing EYES: conjunctivae clear ENT: Mucous membranes moist. TM pearly be with dull light reflex bilaterally; no tragal tenderness. Oropharynx not erythematous without lesions or exudate, no drooling, no hoarseness, no trismus, uvula midline. No tripod positioning, muffled voice, soft palate or pharyngeal wall bulging NECK: Supple. No lymphadenopathy CHEST: Clear to auscultation, breath sounds equal. No wheezing, rhonchi, rales, or stridor. No respiratory distress, speaks in full sentences. HEART: Regular rate and rhythm. No murmur heard. SKIN: Warm, dry, no rash. NEURO: Alert and oriented x3. PSYCH: Normal mood and affect Course Course Emergency Course: Patient is aware of diagnosis, understands and agrees to treatment plan. Anticipatory guidance given. Patient agrees to follow-up as directed and is aware of reasons to seek care at the emergency department. Portions of this record may have been created with voice recognition software Level of Care: Express Care Visit Vital Signs Vital signs: Vital Signs Temperature 96.7 F L 05/13/25 11:39 Pulse Rate 89 05/13/25 11:39 Respiratory Rate 16 05/13/25 11:39 Blood Pressure 130/87 05/13/25 11:39 Pulse Oximetry 98 05/13/25 11:39 Temperature 96.7 F L 05/13/25 11:39 Pulse Rate 89 05/13/25 11:39 Respiratory Rate 16 05/13/25 11:39 Blood Pressure 130/87 05/13/25 11:39 Pulse Oximetry 98 05/13/25 11:39 reviewed MDM - URI/Sore Throat MDM Narrative Medical decision making narrative: Discussed physical exam findings; reviewed RX. Advised supportive measures and signs/symptoms to go to the ER. Pt is appropriate for outpt treatment and f/u. Differential Diagnosis Differential diagnosis: Likely upper respiratory infection, sinusitis and viral infection Discharge Plan Discharge Clinical Impression: Bronchitis Patient Disposition: Home Condition: Stable Instructions: Antibiotic Form, Acute Bronchitis (ED) Additional Instructions: Acute bronchitis can be contagious because it is usually caused by infection with a virus or bacteria. It is usually for a few days but you can be contagious for up to one week. Avoid crowds until you do not have a fever and symptoms are improved Take medication as directed Recommend Flonase spray and Zyrtec (or Claritin/Lydia) over the counter Cough syrup may cause drowsiness; avoid driving or take it at night time. Tylenol every 8 hours as needed for pain Symptomatic treatment includes: rest, fluids, and increase humidity of the air at home. Follow up with your primary care provider as needed in 1 week Go to the ER for worsening symptoms or concerns Patient Language: Amharic Prescriptions: New benzonatate 200 mg capsule 200 mg PO TID PRN (Reason: cough) Qty: 20 0RF amoxicillin-pot clavulanate 875-125 mg tablet 1 tablet PO Q12H 7 Days Qty: 14 0RF No Action Pavblu 2 mg/0.05 mL syringe Jardiance 10 mg tablet 10 mg PO DAILY Qty: 1 0RF calcium carbonate [Calcium 600] 600 mg calcium (1,500 mg) tablet 600 mg PO DAILY Qty: 30 0RF coenzyme Q10 [Co Q-10] 10 mg capsule 10 mg PO ONCE Qty: 1 0RF cholecalciferol (vitamin D3) [Vitamin D3] 50 mcg (2,000 unit) capsule 50 mcg PO DAILY Qty: 1 0RF hydrocortisone [Anti-Itch (HC)] 1 % cream 1 applic topical BID PRN (Reason: itching) Qty: 28.35 0RF Eylea 2 mg/0.05 mL solution 2 mg intravitreal ONCE PreserVision AREDS 14,320-226-200 rgyk-an-gsuv capsule 1 cap PO BID Eliquis 5 mg tablet 5 mg PO BID diltiazem HCl 120 mg capsule,extended release 24hr 120 mg PO DAILY magnesium oxide 400 mg magnesium capsule 400 mg PO DAILY multivitamin Tablet 1 tablet PO DAILY spironolactone 25 mg tablet 25 mg PO BID pantoprazole 40 mg tablet,delayed release (DR/EC) 40 mg PO BID Qty: 180 1RF lancing device with lancets [Accu-Chek FastClix Lancing Dev] Kit See Rx Instructions .ROUTE .COMPLEX Qty: 1 0RF Dose Instruction: USE DIRECTED Rx Instructions: USE DIRECTED mupirocin 2 % ointment 1 applic topical BID Qty: 22 0RF (DME) OneTouch Verio test strips Strip See Rx Instructions .Route Qty: 100 3RF Rx Instructions: Check blood glucose 1xday valacyclovir 500 mg tablet See Rx Instructions .ROUTE .COMPLEX PRN (Reason: cold sores) Qty: 30 3RF Dose Instruction: TAKE 1 TABLET BY MOUTH TWICE DAILY Rx Instructions: TAKE 1 TABLET BY MOUTH TWICE DAILY PRN; (DME) lancets [Accu-Chek Fastclix Lancet Drum] Misc See Rx Instructions .ROUTE .COMPLEX Qty: 102 0RF Dose Instruction: USE DIRECTED DAILY Rx Instructions: USE DIRECTED DAILY sertraline 100 mg tablet 100 mg PO DAILY Qty: 90 1RF Rx Instructions: take w/ 50 mg tablet sertraline 50 mg tablet 50 mg PO DAILY Qty: 90 1RF Rx Instructions: take w/ 100 mg tablet ferrous sulfate [FeroSul] 325 mg (65 mg iron) tablet See Rx Instructions .ROUTE .COMPLEX Qty: 90 1RF Dose Instruction: TAKE 1 TABLET BY MOUTH DAILY Rx Instructions: TAKE 1 TABLET BY MOUTH DAILY atorvastatin 20 mg tablet 20 mg PO DAILY Qty: 90 1RF montelukast 10 mg tablet See Rx Instructions .ROUTE .COMPLEX Qty: 90 1RF Dose Instruction: TAKE 1 TABLET BY MOUTH DAILY Rx Instructions: TAKE 1 TABLET BY MOUTH DAILY metformin 750 mg tablet extended release 24 hr See Rx Instructions .ROUTE .COMPLEX Qty: 180 1RF Dose Instruction: TAKE 1 TABLET BY MOUTH TWICE DAILY Rx Instructions: TAKE 1 TABLET BY MOUTH TWICE DAILY alendronate 70 mg tablet See Rx Instructions .ROUTE .COMPLEX Qty: 12 0RF Dose Instruction: TAKE 1 TABLET BY MOUTH WEEKLY Rx Instructions: TAKE 1 TABLET BY MOUTH WEEKLY mirabegron [Myrbetriq] 25 mg tablet extended release 24 hr 25 mg PO DAILY Qty: 90 1RF buspirone 5 mg tablet See Rx Instructions .ROUTE .COMPLEX Qty: 180 1RF Dose Instruction: TAKE 1 TABLET BY MOUTH TWICE DAILY Rx Instructions: TAKE 1 TABLET BY MOUTH TWICE DAILY tramadol 50 mg tablet 100 mg PO Q8H PRN (Reason: pain) Qty: 180 0RF alprazolam 0.25 mg tablet 0.25 mg PO TID PRN (Reason: anxiety) Qty: 90 0RF Follow-up/Referrals: Romero Jeronimo MD [Primary Care Provider, Family Practice]
== END 2025-05-13 12:08 | disposition home or self-care (01) ==
PROVIDERS: Emergency Provider Nurse Practitioner Family; PCP Family Medicine
DX: J40 Bronchitis, not specified as acute or chronic (principal); E11.9 Type 2 diabetes mellitus without complications; Z79.84 Long term (current) use of oral hypoglycemic drugs; I48.91 Unspecified atrial fibrillation; I11.0 Hypertensive heart disease with heart failure; I50.32 Chronic diastolic (congestive) heart failure; K21.9 Gastro-esophageal reflux disease without esophagitis; R01.1 Cardiac murmur, unspecified; E78.49 Other hyperlipidemia; Z86.73 Personal history of transient ischemic attack (TIA), and cerebral infarction without residual deficits; Z79.01 Long term (current) use of anticoagulants
CPT/HCPCS: 99213; G0463

== ENCOUNTER 2025-06-01 10:56 | Outpatient (CLI) | payer OTHER, SELFPAY ==
--- NOTE | ~2025-06-01 | DEXA_ITS ---
Bone Density Report Name: ADRIEL JUAREZ Age: 80 Sex: Female Ethnicity: White Date of : 1945 Indication: osteopenia; height loss; hysterectomy; Referring Provider: JOSE C ALSTON Study: Bone densitometry was performed. Exam Date: June 01, 2025 Accession number: [id number] Bone Density: Region BMD T-score Z-score Classification AP Spine(L1-L4) 0.877 -1.5 1.1 Osteopenia Femoral Neck (Left) 0.606 -2.2 0.1 Osteopenia Total Hip (Left) 0.709 -1.9 0.2 Osteopenia Femoral Neck (Right) 0.584 -2.4 -0.1 Osteopenia Total Hip (Right) 0.719 -1.8 0.2 Osteopenia Total Hip Mean 0.714 -1.9 0.2 Osteopenia World Health Organization criteria for BMD impression classify patients as: Normal (T-score at or above -1.0), Osteopenia (T-score between -1.0 and -2.5), or Osteoporosis (T-score at or below -2.5). 10-year Fracture Risk(1): Major Osteoporotic Fracture 17% Hip Fracture 5.5% Reported Risk Factors: [place] (), Neck BMD=0.584, BMI=31.6 (1) FRAX(R) Version 3.08. Fracture probability calculated for an untreated patient. Fracture probability may be lower if the patient has received treatment. Previous Exams: Region Exam Age BMD T-score BMD Change BMD Change Date g/cm2 vs Baseline vs Previous AP Spine (L1-L4) 06/01/2025 80 0.877 -1.5 0.013 (1.5%) 0.013 (1.5%) 06/30/2021 76 0.864 -1.7 Total Hip(Left) 06/01/2025 80 0.709 -1.9 -0.050 (-6.6%) -0.050 (-6.6%) 06/30/2021 76 0.760 -1.5 Total Hip(Right) 06/01/2025 80 0.719 -1.8 -0.002 (-0.2%) -0.002 (-0.2%) 06/30/2021 76 0.720 -1.8 *Denotes significance at 95% confidence level, LSC for AP Spine = 0.022 g/cm2, LSC for Total Hip = 0.027 g/cm2 Clinical Information Provided by Patient: Has the following medical conditions: Hysterectomy Patient maximum height was 66 Menopause Age: 54 Onset of menses at age 12 Number of children 2 Impression: The patient has low bone mass, based on the Right Femoral Neck T-score. The patient has an estimated ten-year risk of hip fracture of 5.5% and an estimated ten-year risk of major fracture of 17%, based on the WHO FRAX algorithm. The BMD for the Total Hip(Left) decreased, changing by -6.6% since the last DXA exam. Discussion: BONE DENSITY IS LOW AT ONE OR MORE SKELETAL SITES. THE PATIENT'S BMD AND CLINICAL RISK FACTORS CONTRIBUTE TO THIS PATIENT'S INCREASED RISK OF FRACTURE. This patient's lowest T-score is low at one or more skeletal sites. It meets the World Health Organization's (WHO) criteria for ?low bone mass? (T-score between -1.0 and -2.5). The patient's 10-year risk of hip fracture as calculated by FRAX exceeds the threshold where pharmacological therapy is recommended by the National Osteoporosis Foundation (NOF). However, all treatment decisions require clinical judgment and consideration of individual patient factors, including patient preferences, comorbidities, previous drug use, risk factors not captured in the FRAX model (e.g., frailty, falls, vitamin D deficiency, increased bone turnover, interval significant decline in bone density) and possible under or overestimation of fracture risk by FRAX. The patient should follow a healthful lifestyle (good nutrition with adequate calcium and vitamin D, and appropriate weight-bearing exercise). Follow-Up: Consider a repeat BMD and Vertebral Fracture Assessment (VFA) exam in 2 years or sooner if medically necessary, to reassess this patient's status. Reported by: MICHAEL on 06/01/2025 11:45:00 AM. Reviewed, dictated and finalized at location A.
--- OUTSIDE RECORDS SUMMARY | 2025-06-01 13:04 | XMS_ITS | Encounter Summary ---
Author Organization [facility] Address [address] [place] [address] Care Team Providers Care Pattern Stamper Name Role Phone Unavailable Primary Care Provider Unavailabl e Encounter Details Date Type Department Care Team (Late st Contact Info) Description 06/04/2024 Lab Requisition [facility] - DermPath Lab [address] [place] [address] Iliana France DO [address] [address] [facility] [address] [place] [address] Social History Tobacco Use Types Packs/Day Years Used Date Smoking Tobacco: Never Assessed Comments Unknown Sex and Gender Information Value Date Recorded Sex Assigned at Not on file 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 Gender Identity Not on file Sexual Orientation Not on file documented as of this encounter Plan of Treatment Not on file documented as of this encounter Procedures Procedure Name Priority Date/Time Associated Diagnosis Comments DERMATOPATHOLOGY Routine 06/04/2024 12:0 0 AM CDT documented in this encounter Results * DERMATOPATHOLOGY (06/04/2024 12:00 AM CDT) Case Report Dermatopathology Report Case: [id number] Authorizing Provider: Iliana France DO Collected: 06/04/2024 12:00 AM Ordering Location: [facility] - Received: 06/05/2024 07:06 AM DermPath Lab Pathologist: Rahel Zuniga MD Specimen: Skin, right upper arm 4 2:18 PM CDT DERMATOPATHOLOGY LABORATORY Final Diagnosis Specimen A. 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 The specimen consists of a non-oriented ellipse of skin measuring 14k56e2 mm. The epidermal surface is unremarkable. The margin is inked green. The 12 o'clock and 6 o'clock tips are submitted in cassette 1. The remainder of the ellipse is serially sectioned and submitted in cassette 2. Jar 0. 2:18 PM CDT DERMATOPATHOLOGY LABORATORY Microscopic Description Specimen A. SKIN, right upper arm: There are typical adipocytes with minimal fibrous trabeculae. 2:18 PM T DERMATOPATHOLOGY LABORATORY Disclaimer An external and internal positive and negative controls are appropriate for the histochemical, immunohistochemical and immunofluorescence stain(s) in this case (if any), except where stated explicitly. The performance characteristics of the stain(s) cited in this report were developed and its performance characteristic determined by the Dermatopathology Laboratory at [facility], directed by Dr. Ruiz Holloway. These tests need not be, and therefore are not, approved by the [place] Food and Drug Administration. The tests are used for clinical purposes. Billing Codes Specimen Charges Stain Charges 17790 1 2:18 PM CDT DERMATOPATHOLOGY LABORATORY Embedded Images 2:18 PM CDT DERMATOPATHOLOGY LABORATORY Pathology/Cytolog y TISSUE SPECIMEN FROM SKIN / Unknown 06/04/2024 06/05/2024 7:06 AM CDT us Iliana France DO LAB - PATHOLOGY/CYTOLOGY ORDERABLES Final Result DERMATOPATHOLOGY LABORATORY [facility] - Department of Dermatology [address] [place] [address], [facility] [phone] documented in this encounter Visit Diagnoses Not on filedocumented in this encounter
--- OUTSIDE RECORDS SUMMARY | 2025-06-01 13:04 | XMS_ITS | Clinical Summary ---
Author Organization [facility] Address [address] [place] [address] Care Team Providers Care Laboratory Specialist Name Role Phone Unavailable Primary Care Provider Unavailabl e Source Comments [facility] [employer],non-owned Affiliates and Associated Physician Practices is amultiple site organization consisting of ambulatory clinics and hospital sitesin [place], [place], [place] and [place]. This disclosure is being madepursuant to the Care Everywhere program and may not contain all information available regarding this patient. 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 Gender Identity Not on file Sexual Orientation Not on file Plan of Treatment Health Maintenance Due Date Last Done Comments BONE DENSITY TESTING 1945 DTAP/TDAP/TD VACCINES (1 - Tdap) 02/09/1964 PNEUMOCOCCAL VACCINE 50+ (1 of 1 - PCV) 1995 ZOSTER VACCINE (1 of 2) 1995 Respiratory Syncytial Virus (RSV) Vaccine Pt: or over 60 yrs (1 - 1-dose 75+ series) 02/09/2020 DEPRESSION SCREENING 09/16/2024 COVID-19 VACCINE ( - 2023-2 5 season) 2025 INFLUENZA VACCINE (#1) 2025 HEPATITIS B VACCINE Aged Out No longe r eligible based on patient's age to complete this topic HIB VACCINE Aged Out No longer eligi ble based on patient's age to complete this topic HPV VACCINE Aged Out No longer eligi ble based on patient's age to complete this topic MENINGOCOCCAL (Group B) VACC INE SHARED DECISION-MAKING Aged Out No longer eligibl e based on patient's age to complete this topic MENINGOCOCCAL GROUPS A/C/Y/W VACCINE Aged Out No longer eligible b ased on patient's age to complete this topic Insurance [facility]
--- OUTSIDE RECORDS SUMMARY | 2025-06-01 13:04 | XMS_ITS | Encounter Summary ---
Author Organization [facility] Address [address] [place] [address] Care Team Providers Care Weigh And Charge Worker Name Role Phone Unavailable Primary Care Provider Unavailabl e Encounter Details Date Type Department Care Team (Late st Contact Info) Description 05/27/2024 Lab Requisition [facility] - DermPath Lab [address] [place] [address] Iliana France DO [address] [facility] [place] [address] Social History Tobacco Use Types Packs/Day Years Used Date Smoking Tobacco: Never Assessed Comments Unknown Sex and Gender Information Value Date Recorded Sex Assigned at Not on file 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 Gender Identity Not on file Sexual Orientation Not on file documented as of this encounter Plan of Treatment Not on file documented as of this encounter Procedures Procedure Name Priority Date/Time Associated Diagnosis Comments DERMATOPATHOLOGY Routine 05/26/2024 12:0 0 AM CDT documented in this encounter Results * DERMATOPATHOLOGY (05/26/2024 12:00 AM CDT) Case Report Dermatopathology Report Case: [id number] Authorizing Provider: Iliana France DO Collected: 05/26/2024 12:00 AM Ordering Location: [facility] - Received: 05/27/2024 10:42 AM DermPath Lab Pathologist: Rahel Zuniga MD Specimen: Skin, left crown 2:07 PM CDT DERMATOPATHOLOGY LABORATORY Final Diagnosis Specimen A. SKIN, left crown: ACTINIC KERATOSIS, LICHENOID (L57.0) 4 2:07 PM CDT DERMATOPATHOLOGY LABORATORY at 1407 CDT Clinical History ISK R/O NMSC 4 2:07 PM CDT DERMATOPATHOLOGY LABORATORY Gross Description Specimen A: Received is one formalin filled container labeled with the patient's name and designated left crown. The specimen consists of a shave biopsy measuring 6x5x1 mm. Jar 0. 4 2:07 PM CDT DERMATOPATHOLOGY LABORATORY Microscopic Description Specimen A. SKIN, left crown: There is focal parakeratosis. The lower half of the epidermis shows disorderly maturation of keratinocytes with nuclear pleomorphism. The dermis shows a band-like, chronic inflammatory infiltrate with occasional apoptotic keratinocytes and some basal vacuolar alteration. 4 2:07 PM CDT DERMATOPATHOLOGY LABORATORY Disclaimer An external and internal positive and negative controls are appropriate for the histochemical, immunohistochemical and immunofluorescence stain(s) in this case (if any), except where stated explicitly. The performance characteristics of the stain(s) cited in this report were developed and its performance characteristic determined by the Dermatopathology Laboratory at [facility], directed by Dr. Ruiz Holloway. These tests need not be, and therefore are not, approved by the [place] Food and Drug Administration. The tests are used for clinical purposes. Billing Codes Specimen Charges Stain Charges 52597 1 4 2:07 PM CDT DERMATOPATHOLOGY LABORATORY Embedded Images 2:07 PM CDT DERMATOPATHOLOGY LABORATORY Pathology/Cytolog y TISSUE SPECIMEN FROM SKIN / Unknown 05/26/2024 05/27/2024 10:42 AM CDT us Iliana France DO LAB - PATHOLOGY/CYTOLOGY ORDERABLES Final Result DERMATOPATHOLOGY LABORATORY [facility] - Department of Dermatology [address] [place] [address], [facility] [phone] documented in this encounter Visit Diagnoses Not on filedocumented in this encounter
--- OUTSIDE RECORDS SUMMARY | 2025-06-01 13:04 | XMS_ITS | Clinical Summary ---
Author Organization [facility] at the [facility] Office [facility] Address [address] [place] [address] Care Team Providers Care Vp Customer Service Name Role Phone Aaron Mares MD Unavailable [phone] Romero Jeronimo MD Primary Care Provider [phone] Allergies Active Allergy Reactions Criticality Noted Date Comments Levetiracetam Hives Medium 11/18/2018 Sulfa (Sulfonamide Antibiotics) Nausea & Vomiting,Hives Medium 04/29/2017 Medications sertraline (ZOLOFT) 100 mg tabletIndicati ons:Anxiety with Depression Take 1.5 tablets (150 mg total) by mouth every morning 08/17/20 18 Active montelukast (SINGULAIR) 10 mg tabletIndicati ons:Maintenanc e Therapy for Asthma Take 1 tablet (10 mg total) by mouth nightly 09/14/20 18 Active vit C-vit O-qcdfkh-nvce- lutein 226 mg-200 unit -5 mg-0.8 mg capsuleIndicat ions:supplemen t Take 1 capsule by mouth 2 (two) times a day AREDS2 (Preservision) Active coenzyme Q10 200 mg capsuleIndicat ions:supplemen t Take 1 capsule (200 mg total) by mouth nightly Active magnesium oxide 400 mg capsuleIndicat ions:hypomagne semia Take 400 mg by mouth nightly Active multivitamin capsuleIndicat ions:Vitamin Deficiency Prevention Take 1 capsule by mouth every morning Active ALPRAZolam (XANAX) 0.25 mg tabletIndicati ons:anxiety Take 1 tablet (0.25 mg total) by mouth nightly 11/13/19 Active metFORMIN XR (GLUCOPHAGE XR) 750 mg 24 hr tabletIndicati ons:type 2 diabetes mellitus Take 1 tablet (750 mg total) by mouth 2 (two) times a day Active traMADoL (ULTRAM) 50 mg tabletIndicati ons:Pain Take 1 tablet (50 mg total) by mouth every 6 (six) hours as needed for pain 03/07/20 Active valACYclovir (VALTREX) 500 mg tabletIndicati ons:Skin/Soft Tissue Infection Take 1 tablet (500 mg total) by mouth as needed 01/29/20 Active atorvastatin (LIPITOR) 20 mg tabletIndicati ons:hyperlipid emia Take 1 tablet (20 mg total) by mouth nightly 30 tablet 11 04/06/20 Active Additional Information Patient taking differently:20 mg oralEvery morning, Indications: hyperlipidemia, Informant: Self, Reported on 12/30/2024 mv,Ca,min-iron npik-MT-opodui (Hair,Skin and Nails) 1 mg iron-66.7 mcg-1,000 mcg tabletIndicati ons:Vitamin Deficiency Prevention Take 1 tablet by mouth 2 (two) times a day Active cholecalcifero l (VITAMIN D-3) 2000 unit capsule Take 1 capsule (2,000 Units total) by mouth every morning Active calcium carbonate-ana maría min D3 (CALTRATE 600 + D) 1500 mg (600 mg elemental) -400 units per tablet Take 1 tablet by mouth every morning Active acetaminophen ER (TYLENOL) 650 mg 8 hr tablet Take 1 tablet (650 mg total) by mouth 2 (two) times a day Active alendronate (FOSAMAX) 70 mg tablet Take 1 tablet (70 mg total) by mouth every 7 days On Saturday07/13/20 Active FeroSuL 325 mg (65 mg iron) tablet Take 1 tablet (325 mg total) by mouth nightly 09/03/20 21 Active Accu-Chek Fastclix Lancet Drum misc 07/26/20 21 Active Eylea 2 mg/0.05 mL intra-ocular syringe Last done on 02/26/23 04/03/20 22 Active omeprazole (PriLOSEC) 40 mg capsule Take 1 capsule (40 mg total) by mouth 2 (two) times a day 06/05/20 22 Active amoxicillin 500 mg tablet/capsule Take 1 tablet/capsule (500 mg total) by mouth 4 (four) times a day Prior to dentist Active mupirocin (BACTROBAN) 2 % ointment Apply 1 Application to each nostril nightly 01/15/20 23 Active mirabegron ER (MYRBETRIQ) 25 mg tablet extended release 24 hr Take 1 tablet (25 mg total) by mouth Active spironolactone (ALDACTONE) 25 mg tablet TAKE 1 TABLET(25 MG) BY MOUTH TWICE DAILY 180 tablet 1 01/15/20 25 Active empagliflozin (Jardiance) 10 mg tablet TAKE 1 TABLET(10 MG) BY MOUTH DAILY 90 tablet 1 05/03/20 25 Active DILT-XR 120 mg 24 hr capsule TAKE 1 CAPSULE(120 MG) BY MOUTH DAILY 90 capsule 05/24/20 25 Active apixaban (Eliquis) 5 mg tablet TAKE 1 TABLET(5 MG) BY MOUTH TWICE DAILY 180 tablet 2 05/27/20 25 Active Jardiance 10 mg tablet TAKE 1 TABLET(10 MG) BY MOUTH DAILY 90 tablet 3 04/17/20 24 025 Discontinued DILT-XR 120 mg 24 hr capsule TAKE 1 CAPSULE(120 MG) BY MOUTH DAILY 90 capsule 02/27/20 25 025 Discontinued Eliquis 5 mg tablet TAKE 1 TABLET(5 MG) BY MOUTH TWICE DAILY 180 tablet 02/27/20 25 025 Discontinued Eliquis 5 mg tablet TAKE 1 TABLET(5 MG) BY MOUTH TWICE DAILY 180 tablet 05/24/20 25 025 Discontinued Active Problems Problem Noted Date Diagnosed Date Aortic stenosis 03/28/2023 Pre-procedure lab exam 03/14/2023 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 As she is asymptomatic would recommend conservative therapy versus surgical intervention. Spider veins of both lower extremities Assessment & Plan (01/08/2022 2:11 PM CDT): Assessment/plan: Spider and reticular veins throughout bilateral lower extremities clustered around the foot and ankle. We discussed this treatment would fall under sclerotherapy is typically not covered by insurance. I have written a referral for Dr. Zhao. Mixed hyperlipidemia 01/08/2022 Assessment & Plan (01/08/2022 2:12 PM CDT): Lipitor Disorder of joint prosthesis 10/05/2021 Disorder of lower extremity 10/05/2021 Enthesopathy of hip region 10/05/2021 Knee pain 10/05/2021 Urge urinary incontinence 10/05/2021 Assessment & Plan (04/05/2022 12:00 PM CDT): -Continues to do well on Myrbetriq and happy with results. Denies difficulty urinating, gross hematuria, dysuria. Denies side effects of medication. -She regularly checks her BP at home and has been well controlled. PLAN: -Continue Myrbetriq. -F/U in 1 year or sooner if issues arise. Assessment & Plan (10/05/2021 12:07 PM CARD FILER): -Started on Myrbetriq 50mg. Doing well on this medication and reports she is very happy with the results of this medication. -She denies difficulty urinating or feelings of incomplete bladder emptying. -BP today was 159/89. She reports she keeps an eye on her BP at home and takes her BP medication regulary. She reports normal BP at home. PLAN: -Continue myrbetriq as previously directed. Renal lesion 10/05/2021 Assessment & Plan (10/05/2021 12:06 PM CARD FILER): -Evaluated by Dr. Melara on 09/01/21 who noted lesion has been shrinking over last 4 years. Did not recommend need for further imaging or treatment. PLAN: -No further interventions indicated. 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 01/15 Knee joint effusion 02/10/2019 Ovarian mass 01/08/2019 Overview (01/08/2019): Added automatically from request for surgery [id number] Cyst of ovary 12/24/2018 02/18/2023 Disorder of ovary 12/24/2018 02/18/2023 Aortic valve stenosis 11/03/2018 Overview (11/03/2018): Added automatically from request for surgery [id number] Seizure 03/21/2017 Cerebrovascular accident (CVA) 01/09/2017 Pain in wrist 09/14/2014 Proteinuria 11/02/2013 02/18/2023 Microscopic hematuria 10/21/2012 02/18/2023 Encounters Date Type Department Care Team Description 05/27/2025 Telephone [facility] Cardiology [address] [place] [address] [place] [phone] Viral Villatoro MD Medication Problem 03/25/2025 Results Follow-Up [facility] Cardiology [address] [facility] [address] [place] [phone] Viral Villatoro MD Transthoracic Echo (TTE) Complete W Doppler/CF 03/25/2025 Telephone [facility] Cardiology [address] [place] [address] [place] [phone] Viral Villatoro MD 03/17/2025 11:15 AM CDT Ancillary Procedure [facility] Cardiology [address] [place] [address] [place] [phone] S/P TAVR (transcatheter aortic valve replacement) from Last 3 Months Surgical History Surgery Date Site/Laterality Comments GASTRIC BYPASS JOINT REPLACEMENT Bilateral knees ACHILLES TENDON REPAIR KNEE ARTHROPLASTY Bilateral CARDIAC CATHETERIZATION 09/16/2018 - 09/15/2019 COLONOSCOPY TONSILLECTOMY HYSTERECTOMY W/ BILATERAL SALPINGOOPHORECTOMY 01/23/2019 Bilateral CARDIAC CATHETERIZATION 12/15/2022 - 01/13/2023 ESOPHAGOGASTRODUODENOSCOPY Medical History Medical History Date Comments Hypertension Seizures (HCC) 2018 - stroke re lated Type 2 diabetes mellitus Stroke (HCC) Depression Sinus bradycardia Heart murmur Anxiety Chronic bronchitis (HCC) GERD (gastroesophageal reflux disease) Arthritis Bursitis left hip Aortic stenosis Sleep apnea 2016 CPAP Hyperlipidemia COPD (chronic obstructive pulmonary disease) Iron deficiency anemia Arrhythmia A-fib (HCC) ZARAGOZA (dyspnea on exertion) Aortic valve stenosis Family History Medical History Relation Name Comments Arthritis Mother Family history of arthritis - (Added by TW Conv) Heart disease Mother Family history of cardiac disorder - (Added by TW Conv) Hypertension Mother Family history of hypertension - (Added by TW Conv) Anesthesia problems Neg Hx Relation Name Status Comments Father Mother Social History Tobacco Use Types Packs/Day Years Used Date Smoking Tobacco: Never Smokeless Tobacco: Never Tobacco Cessation:Counseling Given: Not Answered Alcohol Use Standard Drinks/Week Comments Not Currently 0 (1 standard drink = 0.6 oz pur e alcohol) AUDIT-C Answer Date Recorded Q1: How often do you have a drink containing alc ohol? Never 07/18/2021 Average Number of Drinks Not on file 021 Q3: How often do you have si x or more drinks on one occasion? Never 07/18/2021 Personal Safety Answer Date Recorded Have you ever been in or are you currently in a harmful physical or emotional relationship or is someone making you feel afraid or unsafe? Denies 03/28/2023 Comments No Sex and Gender Information Value Date Recorded Sex Assigned at Not on file Legal Sex Female 11:03 PM CARD FILER Gender Identity Not on file Sexual Orientation Not on file Obstetrics History Para Term AB IAB SAB Ectopic Multiple Livin g Live Births 2 2 2 2 Date Outcome GA Total Labor Labor/2nd/3rd Weight Sex Type Anes PTL Radha A1 A5 Name Clin Term Term Last Filed Vital Signs Vital Sign Reading Time Taken Comments Blood Pressure 130/76 12/30/2024 10:56 AM CDT Pulse 88 12/30/2024 10:56 AM CDT Temperature 36.6 C (97.8 F) 03/29/2023 11:46 AM CDT Respiratory Rate 18 03/29/2023 11:46 AM CDT Oxygen Saturation 97% 12/30/2024 10:56 AM CDT Inhaled Oxygen Concentration - - Weight 74.4 kg (164 lb) 12/30/2024 10:56 AM CDT Height 162.6 cm (5' 4) 12/30/2024 10:56 AM CDT Body Mass Index 28.15 12/30/2024 10:56 AM CDT Plan of Treatment Scheduled Procedures Name Priority Associated Diagnoses Date/Ti me COLONOSCOPY Other iron deficiency anemia Health Maintenance Due Date Last Done Comments Albumin Creatinine Ratio, Urine 1945 Depression Screening 1945 Osteoporosis Screening-Bone Density Scan 1945 Dilated Eye Exam 1945 Foot Exam 1945 DTaP/Tdap/Td Vaccine (1 - Tdap) 02/09/1956 Hepatitis B Screening 1963 Well Visit 65+ 2010 Zoster Vaccine (2 of 3) 08/12/2013 06/17/2013 Hemoglobin A1C 09/03/2023 03/04/2023, 0510/2018, 01/09/2017 Fall Risk Assessment 03/29/2024 03/29/2023, 11/03/19 19 eGFR 03/29/2024 03/29/2023, 02/14, 01/08/2023, Additional history exists Influenza Vaccine (#1) 2025 9, 06/18/2018, 08/06/2017, Additional history exists Lipid Panel 10/07/2025 10/07/2024, 12/15, 12/15/2021, Additional history exists Pneumococcal vaccine 65+ Completed 017, 07/17/2016, 08/14/2012 Colon Cancer Screening-CT Colonography Discontinued 07/18/2021 Colon Cancer Screening-Colonoscopy Discontinued 07/18/2021 Colon Cancer Screening-DNA Stool Discontinued 07/18/20 21 Colon Cancer Screening-FIT Discontinued 07/18/2021 Colon Cancer Screening-FOBT Discontinued 07/18/2021 Colon Cancer Screening-Sigmoidoscopy Discontinued 07/18/2021 Colorectal Cancer Screening Discontinued Medical Devices Implanted Type Area Doughnut Machine Operator Helper Device Identifier Shelf Expiration Date Model / Serial / Lot [employer]ig [employer] [id number] Angio-Seal Vip Bondek-Plus 6fr .035in 70cm Hemostatic Latex Free - [id number] Implanted:Qty: 1 on 11/20/2018 by Viral Villatoro MD at [facility] [employer] 07/16/2019 [id number] / / [id number] [facility] Medical Inc Device Closure Vascade Od5 Fr Femoral Artery [id number] - [id number] - [id number] Implanted:Qty: 1 on 01/11/2023 by Viral Villatoro MD at [facility] Medical Inc 08/30/2023 [id number]- [id number] / [id number] / [id number] [employer] Device Clsr Perclose Prostyle Sut-Mediatd Closure-Repair Sys 15186-02 - [id number] Implanted:Qty: 1 on 03/28/2023 by Viral Villatoro MD at [facility] [employer] 01/13/2025 [id number] / / [id number] [employer] Device Clsr Perclose Prostyle Sut-Mediatd Closure-Repair Sys 37762-76 - [id number] Implanted:Qty: 1 on 03/28/2023 by Viral Villatoro MD at [facility] 01/13/2025 [id number] / / [id number] [employer] Kit Valve Coronary Aortic Tissue Pushpa 3 Ultra 23mm [id number] - [id number] - [id number] Implanted:Qty: 1 on 03/28/2023 by Viral Villatoro MD at [facility] [employer] 11/08/2025 [id number] / [id number] / [employer] Medical Young Angio-Seal Vip 6fr Closere Device [id number] - [id number] Implanted:Qty: 1 on 03/28/2023 by Viral Villatoro MD at [facility] [employer] Young 10/16/2023 [id number] / / [id number] [facility] Medical [facility] Device Vascular Closure Femoral Artery Bioabsorbable Dual Method Vascade 6-7fr Collagen [id number] - [id number] Implanted:Qty: 1 on 03/28/2023 by Viral Villatoro MD at [facility] [employer] Inc 12/24/2024 [id number] / / [id number] 2A [facility] Medical [facility] Device Vascular Closure Femoral Artery Bioabsorbable Dual Method Vascade 6-7fr Collagen [id number] - [id number] Implanted:Qty: 1 on 03/28/2023 by Viral Villatoro MD at [facility] [employer] 12/24/2024 [id number]-0 [id number] / / [id number] 2A Procedures Procedure Name Priority Date/Time Associated Diagnosis Comments TRANSTHORACIC ECHO (TTE) COMPLETE W DOPPLER/CF WO CONTRAST Routine 03/17/2025 12:40 PM CDT S/P TAVR (transcatheter aortic valve replacement) LIPID PANEL Routine 10/07/2024 1:42 PM CARD FILER EGFR Routine 03/29/2023 5:47 AM CDT HEMOGLOBIN A1C Routine 03/04/2023 10:22 AM CDT Preop testing COLONOSCOPY 07/18/2021 10:55 AM CDT from Last 3 Months or Most Recently Relevant to Health Maintenance Results * TRANSTHORACIC ECHO (TTE) COMPLETE W DOPPLER/CF WO CONTRAST (03/17/2025 12:40 PM CDT) EF Mod BP 56 % CONS SCIMAGE Anatomical Region Laterality Modality Ultrasound 03/17/2025 11:2 6 AM CDT Narrative 03/17/2025 11:26 PM CDT [facility] Cardiology [address] [facility] [address], [place] [address] [address] [facility] [address], [place] [address] P:[phone] P:[phone] Echocardiographic Report Patient Name: ALEXANDRIA JUAREZ Leidy : 1945 Study Date: 03/17/2025 11:26:12 AM Gender: F Paper Control Clerk: Ольга Elizabeth)([place]), [facility] Location: [place] Ref Provider: VIRAL VILLATORO Height(Cm): 163 BSA: 1.84 Weight(Kg): 74.4 Heart Rate: 94 BP: 130 / 76 Quality: Good Order Provider: VIRAL VILLATORO PROCEDURES: Echocardiographic Report: Transthoracic echocardiogram with complete 2D, M-Mode, and color Doppler examination. With Strain Analysis. INDICATIONS: Z95.2 Presence of prosthetic heart valve. S/P TAVR. MEASUREMENTS: 2D/MM Value Range Doppler Value Range EF Mod BP 56 % [ 54 - 74 ] ALDO Vmax 1.02 cm2 [ 2.00 - 4.00 ] LV GLS -13.41 % AV Mean PG 13 mmHg LVIDd 2D 3.61 cm [ 3.80 - 5.20 ] AV Peak Jameel 2.42 m/s [ 1.00 - 1.70 ] LVIDs 2D 2.53 cm [ 2.20 - 3.50 ] AV Peak PG 23 mmHg LVPWd 2D 1.19 cm [ 0.60 - 0.90 ] AV VTI 47.47 cm IVSd 2D 1.26 cm [ 0.60 - 0.90 ] LVOT Diam 1.84 cm [ 1.70 - 2.10 ] AoR Diam 2D 3.08 cm [ 2.70 - 3.70 ] LVOT Peak Jameel 0.92 m/s [ 0.70 - 1.10 ] LA Volume 111.47 ml [ 22.00 - 52.00 ] LVOT VTI 17.65 cm LA Volume Index 61 cc/m2 [ 16 - 28 ] MV E Peak Jameel 1.38 m/s [ 0.60 - 1.30 ] RA Volume 106.68 ml MV A Peak Jameel 0.55 m/s [ 1.00 - 1.20 ] MV Decel Time 141 msec [ 104 - 258 ] PV Peak Jameel 0.97 m/s [ 0.40 - 0.80 ] TR Peak Jameel 3.51 m/s [ 1.00 - 2.80 ] TR Peak PG 49 mmHg RVSP 61.00 mmHg [ 10.00 - 36.00 ] RV S` 8.78 mmHg Lateral E` 0.09 m/s [ 0.10 - 0.15 ] Septal E` 0.09 m/s [ 0.08 - 0.15 ] E` 0.09 m/s E/E` 15 2D/MM Value Range Doppler Value Range - FINDINGS: Interpretation Site: Exam was interpreted at home. Left Ventricle: Normal left ventricular size. Moderate concentric left ventricular hypertrophy. Diastolic dysfunction is present. Ejection fraction is measured at 56 %. Global Longitudinal Strain is -13 %. Right Ventricle: Normal right ventricular size. Normal right ventricular systolic function. Left Atrium: There is moderate enlargement of left atrium. Right Atrium: There is moderate enlargement of right atrium. Atrial Septum: Normal atrial septum. Mitral Valve: Moderate mitral annular calcification. Trivial regurgitation of the mitral valve. Mild mitral stenosis. Aortic Valve: s/p TAVR using 23 mm Gonzales Pushpa 3 Ultra pericardial tissue valve. Peak Velocity of 2.40 m/s. Mean gradient of 13.0 mmHg. Mild aortic valve regurgitation. Gradients normal for valve type and size. Normal appearing aortic valve bioprosthesis. Tricuspid Valve: Normal appearance of the tricuspid valve. Severe pulmonary hypertension based on right ventricular systolic pressure. Estimated peak RVSP is 61 mmHg. Mild tricuspid regurgitation. Pulmonic Valve: Normal appearance of the pulmonic valve. Mild pulmonic regurgitation. Pericardium: Normal pericardium with no significant pericardial effusion. Aorta: Normal aortic root. IVC: Dilated IVC without respiratory collapse consistent with elevated right atrial pressure (>15 mmHg). CONCLUSIONS: Normal left ventricular size. Moderate concentric left ventricular hypertrophy. Normal LV systolic function. Diastolic dysfunction is present. Ejection fraction is measured at 56 %. Global Longitudinal Strain is -13 %. Normal right ventricular size and systolic function. Moderate biatrial enlargement. Dense mitral annular calcification. Trivial regurgitation of the mitral valve. Mild mitral stenosis. s/p TAVR using 23 mm Gonzales Pushpa 3 Ultra pericardial tissue valve. Peak Velocity of 2.40 m/s. Mean gradient of 13.0 mmHg. DVI 0.38. Gradients normal for valve type and size. Mild aortic regurgitation. Severe pulmonary hypertension, estimated RVSP 61 mmHg. Mild tricuspid regurgitation. Electronically Signed By: Viral Villatoro MD, [facility] 03/17/2025 11:25:42 PM CDT Procedure Note Viral Villatoro MD - 03/17/2025 [facility] Cardiology [address] [facility] [address], [place] [address] [address] [facility] [address], [place] [address] P:[phone] P:[phone] Echocardiographic Report Patient Name: ALEXANDRIA JUAREZ E : 1945 Study Date: 03/17/2025 11:26:12 AM Gender: F Paper Control Clerk: Ольга Elizabeth)([place]), [facility] Location: [facility] Provider: VIRAL VILLATORO Height(Cm): 163 BSA: 1.84 Weight(Kg): 74.4 Heart Rate: 94 BP: 130 / 76 Quality: Good Order Provider: VIRAL VILLATORO PROCEDURES: Echocardiographic Report: Transthoracic echocardiogram with complete 2D, M-Mode, and color Dopplerexamination. With Strain Analysis. INDICATIONS: Z95.2 Presence of prosthetic heart valve. S/P TAVR. MEASUREMENTS: 2D/MM Value Range DopplerValue Range EF Mod BP 56 % [ 54 - 74 ] ALDO Vmax 1.02cm2 [ 2.00 - 4.00 ] LV GLS -13.41 % AV Mean PG 13mmHg LVIDd 2D 3.61 cm [ 3.80 - 5.20 ] AV Peak Jameel 2.42m/s [ 1.00 - 1.70 ] LVIDs 2D 2.53 cm [ 2.20 - 3.50 ] AV Peak PG 23mmHg LVPWd 2D 1.19 cm [ 0.60 - 0.90 ] AV VTI47.47 cm IVSd 2D 1.26 cm [ 0.60 - 0.90 ] LVOT Diam 1.84cm [ 1.70 - 2.10 ] AoR Diam 2D 3.08 cm [ 2.70 - 3.70 ] LVOT Peak Jameel 0.92m/s [ 0.70 - 1.10 ] LA Volume 111.47 ml [ 22.00 - 52.00 ] LVOT VTI17.65 cm LA Volume Index 61 cc/m2 [ 16 - 28 ] MV E Peak Jameel 1.38m/s [ 0.60 - 1.30 ] RA Volume 106.68 ml MV A Peak Jameel 0.55m/s [ 1.00 - 1.20 ] MV Decel Time 141 msec [ 104 - 258 ] PV Peak Jameel 0.97 m/s [ 0.40 - 0.80 ] TR Peak Jameel 3.51 m/s [ 1.00 - 2.80 ] TR Peak PG 49 mmHg RVSP 61.00 mmHg [ 10.00 - 36.00 ] RV S` 8.78 mmHg Lateral E` 0.09 m/s [ 0.10 - 0.15 ] Septal E` 0.09 m/s [ 0.08 - 0.15 ] E` 0.09 m/s E/E` 15 2D/MM Value Range DopplerValue Range - FINDINGS: Interpretation Site: Exam was interpreted at home. Left Ventricle: Normal left ventricular size. Moderate concentric left ventricularhypertrophy. Diastolic dysfunction is present. Ejection fraction is measured at 56 %. GlobalLongitudinal Strain is -13 %. Right Ventricle: Normal right ventricular size. Normal right ventricular systolicfunction. Left Atrium: There is moderate enlargement of left atrium. Right Atrium: There is moderate enlargement of right atrium. Atrial Septum: Normal atrial septum. Mitral Valve: Moderate mitral annular calcification. Trivial regurgitation of the mitralvalve. Mild mitral stenosis. Aortic Valve: s/p TAVR using 23 mm Gonzales Pushpa 3 Ultra pericardial tissue valve. Peak Velocity of 2.40 m/s. Mean gradient of 13.0 mmHg. Mild aortic valveregurgitation. Gradients normal for valve type and size. Normal appearing aortic valvebioprosthesis. Tricuspid Valve: Normal appearance of the tricuspid valve. Severe pulmonary hypertensionbased on right ventricular systolic pressure. Estimated peak RVSP is 61 mmHg. Mildtricuspid regurgitation. Pulmonic Valve: Normal appearance of the pulmonic valve. Mild pulmonic regurgitation. Pericardium: Normal pericardium with no significant pericardial effusion. Aorta: Normal aortic root. IVC: Dilated IVC without respiratory collapse consistent with elevated rightatrial pressure (>15 mmHg). CONCLUSIONS: Normal left ventricular size. Moderate concentric left ventricularhypertrophy. Normal LV systolic function. Diastolic dysfunction is present. Ejection fraction ismeasured at 56 %. Global Longitudinal Strain is -13 %. Normal right ventricular size and systolic function. Moderate biatrial enlargement. Dense mitral annular calcification. Trivial regurgitation of the mitralvalve. Mild mitral stenosis. s/p TAVR using 23 mm Gonzales Pushpa 3 Ultra pericardial tissue valve. PeakVelocity of 2.40 m/s. Mean gradient of 13.0 mmHg. DVI 0.38. Gradients normal for valvetype and size. Mild aortic regurgitation. Severe pulmonary hypertension, estimated RVSP 61 mmHg. Mild tricuspidregurgitation. Electronically Signed By: Viral Villatoro MD, [facility] 03/17/2025 11:25:42 PM CDT Viral Villatoro MD CV ECHO PROCEDURES Final Result * Lipid panel (10/07/2024 1:42 PM CARD FILER) Blood Karis Murcia NP LAB BLOOD ORDERABLES Final Result * eGFR (03/29/2023 5:47 AM CDT) eGFR 90 mL/min/1. 73 m2 [facility] Comment: Interpretive Data Reference Interval Normal >/= 90 mL/min/1.73m2 Mildly decreased* 60 - 89 mL/min/1.73m2 Mildly to moderately decreased 45 - 59 mL/min/1.73m2 Moderately to severely decreased 30 - 44 mL/min/1.73m2 Severely decreased 15 - 29 mL/min/1.73m2 Kidney Failure < 15 mL/min/1.73m2 *Relative to young adult level Estimated glomerular filtration rate is determined by the 2020 CKD-EPI equation recommended by the National Kid[employer] (A Unifying Approach to GFR Estimation: Recommendations of the NKF-ASK Task Force on Reassessing the Inclusion of Race in Diagnosing Kidney Disease, JASN 2020). The CKD-EPI equation should not be used for patients with unstable renal function and has not been validated in children and those over 70. Current interpretive data was last reviewed 2021. Blood 03/29/2023 5:47 AM CDT 03/29/2023 6:09 AM CDT Viral Villatoro MD LAB BLOOD ORDERABLES Final Resul t Performing Organization Address [facility] [facility] Phone Number [facility] [id number] [facility] [place] [address] * (ABNORMAL) Hemoglobin A1c (03/04/2023 10:22 AM CDT) Hgb A1C 6.3(H) 4.0 - 5.6 % GUSTAVO Estimated Average Glucose 134 mg/dL GUSTAVO Comment: The ADA recommends reporting an estimated Average Glucose (eAG) with all Hemoglobin A1c results using the equation derived from a study of 507 normal and diabetic adults. Minority populations were underrepresented and children were not included. (Diabetes Care 31:2582-2787, 2008). The eAG is not equivalent to a fasting glucose. Blood 03/04/2023 10:2 2 AM CDT 03/04/2023 10:35 AM CDT Result [facility] Viral iVllatoro MD LAB BLOOD ORDERABLES Final Resul t Performing Organization Address [facility] de Phone Number JADBERNARDO LINK [address] [address] [facility] [place] [address] * COLONOSCOPY (07/18/2021 10:55 AM CDT) Anatomical Region Laterality Modality Other Narrative Procedure Note Papi Victor MD PhD - 07/18/2021 10:55 AM CDT GI ENDOSCOPY [facility] Patient Name: Alexandria Juarez Procedure Date: 07/18/2021 10:55 AM Date of : 1945 Admit Type: Outpatient Age: 76 Gender: Female Attending MD: Papi Victor MD,PHD Room: [facility] ENDOSCOPY ROOM 8 Note Status: Finalized Procedure: Colonoscopy Indications: Iron deficiency anemia Referring MD: Brad Porter D.O. Providers: Papi Victor MD, PHD Medicines: Monitored Anesthesia Care Complications: No immediate complications. Estimated Blood Loss: Estimated blood loss: none. Procedure: Pre-Anesthesia Assessment: - Immediately prior to administration ofmedications, the patient was re-assessed for adequacy to receive sedatives. - The risks and benefits of the procedure and the sedation options and risks were discussed with the patient. All questions were answered and informed consent was obtained. The benefits, risks and alternatives of theprocedure and sedation were discussed and informed consentwas obtained. All questions were answered. Please referto the signed informed consent document in the medical record. The scope was passed under direct vision.The [id number] endoscope was introduced through the anus and advanced to the terminal ileum. The colonoscopy was performed without difficulty. The patient tolerated the procedure well. The qualityof the bowel preparation was excellent. The quality of the bowel preparation was evaluated using the BBPS (Harbert Bowel Preparation Scale) with scores of:Right Colon = 3, Transverse Colon = 3 and Left Colon = 3 (entire mucosa seen well with no residual staining, small fragments of stool or opaque liquid). Thetotal BBPS score equals 9. The bowel preparation used was polyethylene glycol (PEG) via split doseinstruction. Bowel prep was administered using a split dose. Findings: The perianal and digital rectal examinations were normal. The terminal ileum appeared normal. Two Yanely classification IIa (superficial, elevated) polyps werefound in the ascending colon and cecum. The polyps were 6 to 8 mm in size. These polyps were removed with a cold snare. Resection and retrieval were complete. Multiple small and large-mouthed diverticula were found in thesigmoid colon. A localized area of moderately erythematous mucosa with possible pusvs. ulcer was found in the sigmoid colon. Biopsies were taken with a cold forceps for histology. The exam was otherwise without abnormality on direct and retroflexion views. Impression: - The examined portion of the ileum was normal. - Two 6 to 8 mm polyps in the ascending colon andin the cecum, removed with a cold snare. Resected and retrieved. - Diverticulosis in the sigmoid colon. - Erythematous mucosa in the sigmoid colon with possible pus vs. ulcer. Biopsied. r/odiverticulitis - The examination was otherwise normal on directand retroflexion views. Recommendation: - Await pathology results. 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 Given that no obvious cause of ANGE was found today, will suggest VCE after patency capsule. - Return to GI clinic PRN. Attending Participation: I personally performed the entire procedure. Electronically signed by Papi Victor MD. Papi Victor MD, PHD 07/18/2021 11:49:23 AM Number of Addenda: 0 Note Initiated On: 07/18/2021 10:55 AM Recognized by the [employer] for promoting quality in endoscopy Papi Victor MD PhD ENDOSCOPY PROCEDURES Le l Result from Last 3 Months or Most Recently Relevant to Health Maintenance Insurance [facility] Address: [address] [address] [place] [address] [facility] Advance Directives For more information, please contact: [phone] Documents on File Type Date Recorded Patient Pest Control Service Technician Expl anation ADVANCE DIRECTIVE 06/14/2021 10:54 AM Ingrid Hernandez ADVANCE DIRECTIVE 06/14/2021 10:54 AM Paola pham of Meter T[employer] [facility] * Full Code (Latest Code Status on File) Date Activated Date Inactivated Comments 03/28/2023 4:17 PM 03/29/2023 7:07 PM * Full Code Date Activated Date Inactivated Comments 07/18/2021 8:20 AM 07/18/2021 1:51 PM * Full Code Date Activated Date Inactivated Comments 01/23/2019 1:26 PM 01/26/2019 4:03 PM Care Teams Vp Customer Service Relationship Specialty Start Date End Date Romero Jeronimo MD [address] [place], [place] [id number] PCP - General Family Practice 04/10/23 Aaron Mares MD [address] [place] [address] Referring Physician Obstetrics and Gynecology 12/30/18
--- OUTSIDE RECORDS SUMMARY | 2025-06-01 13:04 | XMS_ITS | Encounter Summary ---
Author Organization [facility] Health Address [address] [place] [address] Care Team Providers Care Time Study Technician Name Role Phone Unavailable Primary Care Provider Unavailabl e Encounter Details Date Type Department Care Team (Late st Contact Info) Description 06/04/2024 Lab Requisition [facility] - DermPath Lab [address] [place] [address] Iliana France DO [address] [facility] [address] [place] [address] Social History Tobacco Use Types Packs/Day Years Used Date Smoking Tobacco: Never Assessed Comments Unknown Sex and Gender Information Value Date Recorded Sex Assigned at Not on file 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
== END 2025-06-01 10:57 | disposition home or self-care (01) ==
PROVIDERS: PCP Family Medicine; Visit Provider Nurse Practitioner Family
DX: M81.0 Age-related osteoporosis without current pathological fracture (principal); M85.89 Other specified disorders of bone density and structure, multiple sites
CPT/HCPCS: 77080

== ENCOUNTER 2025-08-18 09:42 | Outpatient (CLI) | payer OTHER, SELFPAY ==
--- NOTE | ~2025-08-18 | MM_ITS ---
EXAMINATION: MM screening marlene BI w mary lou HISTORY: Screening. TECHNIQUE: Craniocaudal and mediolateral oblique 3-D tomosynthesis images were obtained and synthetic 2-D images were generated. CAD analysis was submitted and interpreted. COMPARISON: 2023, 2022, and 2020 BREAST PARENCHYMAL COMPOSITION: Not Dense: There are scattered areas of fibroglandular FINDINGS: No suspicious masses are seen. There are no suspicious calcifications. No unexplained architectural distortion is seen. There are no skin or nipple abnormalities identified. There is no adenopathy seen on the images submitted. IMPRESSION: No mammographic evidence to suggest malignancy is seen. The patient may return to screening mammography as per ACR guidelines. BI-RADS 1 - Negative. Reviewed, dictated and finalized at location B. DINATOR SKILL TRAINING PROGRAM
--- OUTSIDE RECORDS SUMMARY | 2025-08-18 10:44 | XMS_ITS | Clinical Summary ---
Author Organization [facility] Address [address] [address] Care Team Providers Care Cement Side Laster Name Role Phone Unavailable Primary Care Provider Unavailabl e Source Comments [facility],non-owned Affiliates and Associated Physician Practices is amultiple site organization consisting of ambulatory clinics and hospital sitesin [place], [place], [place] and [place]. This disclosure is being madepursuant to the Care Everywhere program and may not contain all information available regarding this patient. 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
--- OUTSIDE RECORDS SUMMARY | 2025-08-18 10:44 | XMS_ITS | Encounter Summary ---
Author Organization [facility] Address [address] [place] [place] [address] Care Team Providers Care Seam Press Operator Name Role Phone Unavailable Primary Care Provider Unavailabl e Encounter Details Date Type Department Care Team (Late st Contact Info) Description 06/04/2024 Lab Requisition [facility] - DermPath Lab [address] [facility] [address] [facility] [address] [facility], [place] [address] Iliana France DO [address] 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 Gender Identity Not on file Sexual Orientation Not on file documented as of this encounter Plan of Treatment Not on file documented as of this encounter Procedures Procedure Name Priority Date/Time Associated Diagnosis Comments DERMATOPATHOLOGY Routine 06/04/2024 12:0 0 AM CDT documented in this encounter Results * DERMATOPATHOLOGY (06/04/2024 12:00 AM CDT) Case Report Dermatopathology Report Case: [id number] Authorizing Provider: Iliana France DO Collected: 06/04/2024 12:00 AM Ordering Location: [facility] - Received: 06/05/2024 07:06 AM [...] of a non-oriented ellipse of skin measuring [id number] mm. The epidermal surface is unremarkable. The [...] characteristic determined by the Dermatopathology Laboratory at [facility], directed by Dr. Ruiz Holloway. These tests need not be, and therefore are not, approved by the [place] Food and Drug Administration. The tests are used for clinical purposes. Billing Codes Specimen Charges Stain Charges 15314 1 2:18 PM CDT DERMATOPATHOLOGY LABORATORY Embedded Images 2:18 PM CDT DERMATOPATHOLOGY LABORATORY Pathology/Cytolog y TISSUE SPECIMEN FROM SKIN / Unknown 06/04/2024 06/05/2024 7:06 AM CDT us Iliana France DO LAB - PATHOLOGY/CYTOLOGY ORDERABLES Final Result DERMATOPATHOLOGY LABORATORY [facility] - Department of Dermatology [address] [place] [address], [facility] [phone] documented in this encounter Visit Diagnoses Not on filedocumented in this encounter
--- OUTSIDE RECORDS SUMMARY | 2025-08-18 10:44 | XMS_ITS | Encounter Summary ---
Author Organization [facility] Health Address [address] [place] [address] Care Team Providers Care Protection Officer Name Role Phone Unavailable Primary Care Provider Unavailabl e Encounter Details Date Type Department Care Team (Late st Contact Info) Description 06/04/2024 Lab Requisition [facility] - DermPath Lab [address] [facility] [address] [place] [address] Iliana France DO [address] [facility] [address] [place] [address] Social History Tobacco Use Types Packs/Day Years Used Date Smoking Tobacco: Never Assessed Comments Unknown Sex and Gender Information Value Date Recorded Sex Assigned at Not on file 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
--- OUTSIDE RECORDS SUMMARY | 2025-08-18 10:44 | XMS_ITS | Encounter Summary ---
Author Organization [facility] Address [address] [place] [address] Care Team Providers Care Podiatry Teacher Name Role Phone Unavailable Primary Care Provider Unavailabl e Encounter Details Date Type Department Care Team (Late st Contact Info) Description 05/27/2024 Lab Requisition [facility] - DermPath Lab [address] [facility] [place] [address] Iliana France DO [address] [facility] [address] [place] [address] Social History Tobacco Use Types Packs/Day Years Used Date Smoking Tobacco: Never Assessed Comments Unknown Sex and Gender Information Value Date Recorded Sex Assigned at Not on file 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 Gender Identity Not on file Sexual Orientation Not on file documented as of this encounter Plan of Treatment Not on file documented as of this encounter Procedures Procedure Name Priority Date/Time Associated Diagnosis Comments DERMATOPATHOLOGY Routine 05/26/2024 12:0 0 AM CDT documented in this encounter Results * DERMATOPATHOLOGY (05/26/2024 12:00 AM CDT) Case Report Dermatopathology Report Case: [id number] Authorizing Provider: Iliana France DO Collected: 05/26/2024 12:00 AM Ordering Location: [facility] - Received: 05/27/2024 [...] characteristic determined by the Dermatopathology Laboratory at [facility], directed by Dr. Ruiz Holloway. These tests need not be, and therefore are not, approved by the [place] Food and Drug Administration. The tests are used for clinical purposes. Billing Codes Specimen Charges Stain Charges 38969 1 4 2:07 PM CDT DERMATOPATHOLOGY LABORATORY Embedded Images 2:07 PM CDT DERMATOPATHOLOGY LABORATORY Pathology/Cytolog y TISSUE SPECIMEN FROM SKIN / Unknown 05/26/2024 05/27/2024 10:42 AM CDT us Iliana France DO LAB - PATHOLOGY/CYTOLOGY ORDERABLES Final Result DERMATOPATHOLOGY LABORATORY [facility] - Department of Dermatology [address] [place] [address], [facility] [phone] documented in this encounter Visit Diagnoses Not on filedocumented in this encounter
--- OUTSIDE RECORDS SUMMARY | 2025-08-18 10:44 | XMS_ITS | Clinical Summary ---
Author Organization [facility] Address [address] [place] [address] Care Team Providers Care Marine Fire Fighter Name Role Phone Aaron Mares MD Unavailable [phone] Romero Jeronimo MD Primary Care Provider [phone] Allergies Active Allergy Reactions Criticality Noted Date Comments Levetiracetam Hives Medium 11/18/2018 Sulfa (Sulfonamide Antibiotics) Nausea & Vomiting,Hives Medium 04/29/2017 Medications sertraline (ZOLOFT) 100 mg tabletIndicatio ns:Anxiety with Depression Take 1.5 tablets (150 mg total) by mouth every morning 8 Active montelukast (SINGULAIR) 10 mg tabletIndicatio ns:Maintenance Therapy for Asthma Take 1 tablet (10 mg total) by mouth nightly 8 Active vit C-vit L-hyogbz-lxuu-l utein 226 mg-200 unit -5 mg-0.8 mg capsuleIndicati ons:supplement Take 1 capsule by mouth 2 (two) times a day AREDS2 (Preservision) Active coenzyme Q10 200 mg capsuleIndicati ons:supplement Take 1 capsule (200 mg total) by mouth nightly Active magnesium oxide 400 mg capsuleIndicati ons:hypomagnese buffy Take 400 mg by mouth nightly Active multivitamin capsuleIndicati ons:Vitamin Deficiency Prevention Take 1 capsule by mouth every morning Active ALPRAZolam (XANAX) 0.25 mg tabletIndicatio ns:anxiety Take 1 tablet (0.25 mg total) by mouth nightly 9 Active metFORMIN XR (GLUCOPHAGE XR) 750 mg 24 hr tabletIndicatio ns:type 2 diabetes mellitus Take 1 tablet (750 mg total) by mouth 2 (two) times a day Active traMADoL (ULTRAM) 50 mg tabletIndicatio ns:Pain Take 1 tablet (50 mg total) by mouth every 6 (six) hours as needed for pain 0 Active valACYclovir (VALTREX) 500 mg tabletIndicatio ns:Skin/Soft Tissue Infection Take 1 tablet (500 mg total) by mouth as needed 0 Active atorvastatin (LIPITOR) 20 mg tabletIndicatio ns:hyperlipidem ia Take 1 tablet (20 mg total) by mouth nightly 30 tablet 11 0 Active Additional Information Patient taking differently:20 mg oralEvery morning, Indications: hyperlipidemia, Informant: Self, Reported on 12/30/2024 mv,Ca,min-iron qdmq-FF-nelfai (Hair,Skin and Nails) 1 mg iron-66.7 mcg-1,000 mcg tabletIndicatio ns:Vitamin Deficiency Prevention Take 1 tablet by mouth 2 (two) times a day Active cholecalciferol (VITAMIN D-3) 2000 unit capsule Take 1 capsule (2,000 Units total) by mouth every morning Active calcium carbonate-vitam in D3 (CALTRATE 600 + D) 1500 mg (600 mg elemental) -400 units per tablet Take 1 tablet by mouth every morning Active acetaminophen ER (TYLENOL) 650 mg 8 hr tablet Take 1 tablet (650 mg total) by mouth 2 (two) times a day Active alendronate (FOSAMAX) 70 mg tablet Take 1 tablet (70 mg total) by mouth every 7 days On Saturday 1 Active FeroSuL 325 mg (65 mg iron) tablet Take 1 tablet (325 mg total) by mouth nightly 1 Active Accu-Chek Fastclix Lancet Drum misc 1 Active Eylea 2 mg/0.05 mL intra-ocular syringe Last done on 02/26/23 2 Active omeprazole (PriLOSEC) 40 mg capsule Take 1 capsule (40 mg total) by mouth 2 (two) times a day 2 Active amoxicillin 500 mg tablet/capsule Take 1 tablet/capsule (500 mg total) by mouth 4 (four) times a day Prior to dentist Active mupirocin (BACTROBAN) 2 % ointment Apply 1 Application to each nostril nightly 3 Active mirabegron ER (MYRBETRIQ) 25 mg tablet extended release 24 hr Take 1 tablet (25 mg total) by mouth Active empagliflozin (Jardiance) 10 mg tablet TAKE 1 TABLET(10 MG) BY MOUTH DAILY 90 tablet 1 5 Active DILT-XR 120 mg 24 hr capsule TAKE 1 CAPSULE(120 MG) BY MOUTH DAILY 90 capsule 5 Active apixaban (Eliquis) 5 mg tablet TAKE 1 TABLET(5 MG) BY MOUTH TWICE DAILY 180 tablet 2 5 Active spironolactone (ALDACTONE) 25 mg tablet TAKE 1 TABLET(25 MG) BY MOUTH TWICE DAILY 180 tablet 5 Active Active Problems Problem Noted Date Diagnosed Date [...] intervention. Spider veins of both lower extremities 2 Assessment & Plan (01/08/2022 2:11 PM CDT): [...] arise. Assessment & Plan (10/05/2021 12:07 PM STOCK CAR DRIVER): -Started on Myrbetriq 50mg. Doing well on [...] 10/05/2021 Assessment & Plan (10/05/2021 12:06 PM STOCK CAR DRIVER): -Evaluated by Dr. Melara on 09/01/21 who noted lesion has been shrinking over last 4 years. Did not recommend need for further imaging or treatment. PLAN: -No further interventions indicated. 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 01/15 Knee joint effusion 02/10/2019 Ovarian mass 01/08/2019 Overview (01/08/2019): Added automatically from request for surgery [id number] Cyst of ovary 12/24/2018 02/18/2023 Disorder of ovary 12/24/2018 02/18/2023 Aortic valve stenosis 11/03/2018 Overview (11/03/2018): Added automatically from request for surgery [id number] Seizure 03/21/2017 Cerebrovascular accident (CVA) 01/09/2017 Pain in wrist 09/14/2014 Proteinuria 11/02/2013 02/18/2023 Microscopic hematuria 10/21/2012 02/18/2023 Encounters Date Type Department Care Team Description 05/27/2025 Telephone [facility] Cardiology [address] [place] [address] Viral Serrato MD Medication Problem from Last 3 Months Surgical History Surgery [...] on file Legal Sex Female 11:03 PM STOCK CAR DRIVER Gender Identity Not on file Sexual Orientation [...] 3) 08/12/2013 06/17/2013 Hemoglobin A1C 09/03/2023 03/04/2023, 05/0 10/2018, 01/09/2017 Fall Risk Assessment 03/29/2024 03/29/2023, 11/03/19 19 eGFR 03/29/2024 03/29/2023, 02/14, 01/08/2023, Additional history exists Influenza Vaccine (#1) 2025 9, 06/18/2018, 08/06/2017, Additional history exists Lipid Panel 10/07/2025 10/07/2024, 12/15, 12/15/2021, Additional history exists Pneumococcal vaccine 65+ Completed 017, 07/17/2016, 08/14/2012 Colon Cancer Screening-CT Colonography Discontinued 07/18/2021 Colon Cancer Screening-Colonoscopy Discontinued 07/18/2021 Colon Cancer Screening-DNA Stool Discontinued 07/18/20 Colon Cancer Screening-FIT Discontinued 07/18/2021 Colon Cancer Screening-FOBT Discontinued 07/18/2021 Colon Cancer Screening-Sigmoidoscopy Discontinued 07/18/2021 Colorectal Cancer Screening Discontinued Medical Devices Implanted Type Area Fence Post Driver Device Identifier Shelf Expiration Date Model / Serial / Lot [employer] [id number] Angio-Seal Vip Bondek-Plus 6fr .035in 70cm Hemostatic Latex Free - [id number] Implanted:Qty: 1 on 11/20/2018 by Viral Serrato MD at [facility] [employer] 07/16/2019 [id number] / / [id number] [employer] Device Closure Vascade Od5 Fr Femoral Artery [id number] - [id number] - [id number] Implanted:Qty: 1 on 01/11/2023 by Viral Serrato MD at [facility] [employer] 08/30/2023 [id number] / [id number] / [id number] [employer] Device Clsr Perclose Prostyle Sut-Mediatd Closure-Repair Sys 13166-39 - [id number] Implanted:Qty: 1 on 03/28/2023 by Viral Serrato MD at [facility] [employer] 01/13/2025 [id number] / / [id number] [employer] V[employer] Device Clsr Perclose Prostyle Sut-Mediatd Closure-Repair Sys 54607-62 - [id number] Implanted:Qty: 1 on 03/28/2023 by Viral Serrato MD at [facility] [employer] 01/13/2025 [id number] / / [id number] Kit Valve Coronary Aortic Tissue Pushpa 3 Ultra 23mm [id number] - [id number] - [id number] Implanted:Qty: 1 on 03/28/2023 by Viral Serrato MD at [facility] [employer] 11/08/2025 [id number] / [id number] / Razz Angio-Seal Vip 6fr Closere Device [id number] - [id number] Implanted:Qty: 1 on 03/28/2023 by Viral Serrato MD at [facility] [employer] Young 10/16/2023 [id number] / / [id number] [employer] RootsRated Device Vascular Closure Femoral Artery Bioabsorbable Dual Method Vascade 6-7fr Collagen [id number] - [id number] Implanted:Qty: 1 on 03/28/2023 by Viral Serrato MD at [facility] [employer] 12/24/2024 [id number]-0 [id number] / / [id number] 2A [employer] RootsRated Device Vascular Closure Femoral Artery Bioabsorbable Dual Method Vascade 6-7fr Collagen [id number] - [id number] Implanted:Qty: 1 on 03/28/2023 by Viral Serrato MD at [facility] [employer] 12/24/2024 [id number]-0 [id number] / / [id number] 2A Procedures Procedure Name Priority Date/Time Associated Diagnosis Comments LIPID PANEL Routine 10/07/2024 1:42 PM STOCK CAR DRIVER EGFR Routine 03/29/2023 5:47 AM CDT HEMOGLOBIN A1C Routine 03/04/2023 10:22 AM CDT Preop testing COLONOSCOPY 07/18/2021 10:55 AM CDT from Last 3 Months or Most Recently Relevant to Health Maintenance Results * Lipid panel (10/07/2024 1:42 PM STOCK CAR DRIVER) Blood Karis Murcia AUDIT CLERK LAB BLOOD ORDERABLES Final Result * eGFR [...] AM CDT 03/29/2023 6:09 AM CDT Viral Serrato MD LAB BLOOD ORDERABLES Final Resul t Performing Organization Address [facility] de Phone Number GUSTAVO NIKOLAY [address] [place] [address] * (ABNORMAL) Hemoglobin A1c (03/04/2023 10:22 AM CDT) Hgb A1C 6.3(H) 4.0 - 5.6 % GUSTAVO LINK Estimated Average Glucose 134 mg/dL GUSTAVO LINK Comment: The ADA recommends reporting an estimated Average Glucose (eAG) with all Hemoglobin A1c results using the equation derived from a study of 507 normal and diabetic adults. Minority populations were underrepresented and children were not included. (Diabetes Care 31:8924-3913, 2008). The eAG is not equivalent to a fasting glucose. Blood 03/04/2023 10:2 2 AM CDT 03/04/2023 10:35 AM CDT us Viral Serrato MD LAB BLOOD ORDERABLES Final Resul t Performing Organization Address [facility] Co de Phone Number GUSTAVO LINK [address] [place] [address] * COLONOSCOPY (07/18/2021 10:55 AM CDT) Anatomical Region Laterality Modality Other Narrative Procedure Note Papi Victor MD PhD - 07/18/2021 10:55 AM CDT [facility] Patient Name: Alexandria Kirkpatrick Procedure Date: 07/18/2021 10:55 AM Date of : 1945 Admit Type: Outpatient Age: 76 Gender: Female Attending MD: Papi Victor MD,PHD Room: [facility] ENDOSCOPY ROOM 8 Note Status: Finalized [...] The scope was passed under direct vision.The [id number] endoscope was introduced through the anus and advanced to the terminal ileum. The colonoscopy was performed without difficulty. The patient tolerated the procedure well. The qualityof the bowel preparation was excellent. The quality of the bowel preparation was evaluated using the BBPS (Oglesby Bowel Preparation Scale) with scores of:Right Colon [...] On: 07/18/2021 10:55 AM Recognized by the [employer] for promoting quality in endoscopy Papi Victor MD PhD ENDOSCOPY PROCEDURES Le l Result from Last 3 Months or Most Recently Relevant to Health Maintenance Insurance [facility] HMO/PPO Address: [address] [address] [place] [address] [facility] Advance Directives For more information, please contact: [phone] Documents on File Type Date Recorded 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 Expl 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 ADVANCE DIRECTIVE 06/14/2021 10:54 AM Ingrid ng Will ADVANCE DIRECTIVE 06/14/2021 10:54 AM Paola r of Rubber Insulator-Medical * Full Code (Latest Code Status on File) Date Activated Date Inactivated Comments 03/28/2023 4:17 PM 03/29/2023 7:07 PM * Full Code Date Activated Date Inactivated Comments 07/18/2021 8:20 AM 07/18/2021 1:51 PM * Full Code Date Activated Date Inactivated Comments 01/23/2019 1:26 PM 01/26/2019 4:03 PM Care Teams Marine Fire Fighter Relationship Specialty Start Date End Date Romero Jeronimo MD [address] [place] [address] PCP - General Family Practice 04/10/23 Aaron Mares MD [address] [place] [address] Referring Physician Obstetrics and Gynecology 12/30/18
== END 2025-08-18 09:43 | disposition home or self-care (01) ==
LOC: ANHFOHIMG 09:44
PROVIDERS: PCP Nurse Practitioner Family; Visit Provider Family Medicine
DX: Z12.31 Encounter for screening mammogram for malignant neoplasm of breast (principal)
CPT/HCPCS: 77063; 77067

== ENCOUNTER 2025-09-01 11:12 | Emergency (ER) | payer OTHER, SELFPAY ==
--- NOTE | ~2025-09-01 | XR_ITS ---
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 Technique: 2 views obtained. Findings: The lungs are clear, no effusion. No pneumothorax. Heart is normal size. Mediastinal and hilar contours are within normal limits. Bony thorax no acute abnormality. Impression: No acute cardiopulmonary abnormality. Reviewed, dictated and finalized at location P. PROCESSING MACHINE OPERATOR Impression: No acute cardiopulmonary abnormality.
--- NOTE | 2025-09-01 11:18 | ED_ITS ---
HPI - General Adult General Chief complaint: Upper Respiratory Infection Stated complaint: Sinus Source: patient Mode of arrival: ambulatory Limitations: no limitations History of Present Illness HPI narrative: Pt is an 80 y.o female presenting with c/o cold sx. Pt reports cough x 5 days, with rhinorrhea, congestion, sore throat starting 2 days ago. Denies any known exposure to COVID, FLU, STREP, PNA. Tx initiated CHICKEN CATCHER includes Mucinex. No additional complaints. Related Data Home Medications ?Medication ?Instructions ?Recorded ?Confirmed ?Last Taken ?Type vitamins A,C,G-djyk-toszwz 4,296 1 cap PO BID 08/01/20 09/01/25 Unknown History mcg-226 mg-90 mg capsule (PreserVision AREDS) apixaban 5 mg tablet (Eliquis) 5 mg PO BID 11/25/20 Unknown History diltiazem HCl 120 mg 120 mg PO DAILY 11/25/20 Unknown History capsule,extended release 24 hr magnesium oxide 400 mg PO DAILY 11/25/20 Unknown History multivitamin 1 tablet PO DAILY 11/25/20 1 11/02/24 Unknown History spironolactone 25 mg tablet 25 mg PO BID 06/27/2208/16 Unknown History aflibercept 2 mg/0.05 mL 2 mg intravitreal ONCE 02/2809/01/25 Unknown History intravitreal solution for injection (Eylea) aflibercept-ayyh 2 mg/0.05 mL mg 05/13/25 07/05/25 Unk nown History intravitreal syringe (Pavblu) Allergies Allergy/AdvReac Type Severity Reaction Status Date / Time levetiracetam Allergy Severe Hives Verified 09/01/25 11:36 Review of Systems Review of Systems: CONSTITUTIONAL: Denies body aches, fever, chills, or sweats. EYES: Denies visual changes, redness, or discharge. ENT: reports rhinorrhea, congestion, sore throat, denies otalgia. CARDIOVASCULAR: Denies chest pain, palpitations, or edema. RESPIRATORY: reports cough denies dyspnea. GASTROINTESTINAL: Denies abdominal pain, nausea, vomiting, or diarrhea. GENITOURINARY: Denies dysuria or hematuria. SKIN: Denies rash, itching, or wounds. MUSCULOSKELETAL: Denies back pain, joint pain, or myalgia. NEUROLOGIC: Denies headache, numbness, tingling, or weakness. PSYCH: Denies depression or anxiety. All systems reviewed & are unremarkable except as noted in HPI and below PMFSH Past Medical History Medical History COVID-19 Postmenopausal Arthritis Diabetes CHF (congestive heart failure), NYHA class I Afib MASOUD (obstructive sleep apnea) Wears glasses Acquired absence of ovaries, bilateral Serous cystadenoma Trochanteric bursitis of left hip Left leg swelling Aortic valve stenosis Cerebrovascular accident (CVA) Chronic diastolic (congestive) heart failure Cough ZARAGOZA (dyspnea on exertion) Edema of extremities Essential (primary) hypertension Gastroesophageal reflux disease Heart murmur Orthostatic hypotension Other and unspecified hyperlipidemia Persistent headaches Primary osteoarthritis involving multiple joints SK (seborrheic keratosis) SOB (shortness of breath) Seizure DM w/o complication type II Surgical History Surgical History History of heart surgery History of knee replacement Family History Family History Father Family history of Alzheimer's disease Mother Family history of heart disease in male family member before age 55 Other Arthritis Social History Social History Smoking status: Never smoker Second hand tobacco smoke exposure: No Alcohol intake: never Substance use: never Substance use type: does not use Lack of Transportation: No Lack of Food: Never True Current Housing: I Have Housing Concerned About Future Housing: No Difficulty Paying Gas/Electric Bills: No Difficulty Paying for Meds: No Currently Unemployed: No Education: Associate Degree Difficulty w/ Childcare or Family Care: No Exam Narrative: GENERAL: Well-appearing, well-nourished, and in no acute distress. HEAD: Normocephalic, atraumatic. EYES: EOMI. No redness or drainage. Conjunctivae normal. ENT: Mucous membranes pink and moist. Nares clear. Excoriation noted immediately inferior to nares. TMs normal bilaterally. Scant amount of clear postnasal drainage. Tonsils are surgically absent. Throat without erythema, edema, exudate. Uvula midline. Voice is slightly hoarse. Sinuses are nontender to palpation NECK: Normal AROM. Supple. CHEST: No respiratory distress. Clear to auscultation. HEART: Regular rate and rhythm. No murmur appreciated. Normal peripheral pulses. EXTREMITIES: Normal range of motion SKIN: Warm, dry, no rash. Capillary refill normal. Normal skin turgor. NEURO: No focal deficits. Alert and oriented x3. Ambulatory with cane. PSYCH: Normal affect. No signs of depression or anxiety. Course Course Level of Care: Express Care Visit Vital Signs Vital signs: Vital Signs Temperature 97.2 F L 09/01/25 11:29 Pulse Rate 88 09/01/25 11:29 Respiratory Rate 16 09/01/25 11:29 Blood Pressure 147/75 H 09/01/25 11:29 Pulse Oximetry 99 09/01/25 11:29 Temperature 97.2 F L 09/01/25 11:29 Pulse Rate 88 09/01/25 11:29 Respiratory Rate 16 09/01/25 11:29 Blood Pressure 147/75 H 09/01/25 11:29 Pulse Oximetry 99 09/01/25 11:29 MDM MDM Narrative Medical decision making narrative: Out of window for treatment of COVID/FLU/RSV- no POC testing performed today. Discussed elevated blood pressure readings with patient and advised daily BP monitoring and f/u with PCP if persisting. Differential Diagnosis Differential Diagnosis: PNA, Bronchitis, COVID, FLU, other viral URI Imaging Data Attestation: I personally reviewed and interpreted this imaging study as follows: My impression: NAD Radiologist's impression: ITS Impressions Chest X-Ray 09/01/25 11:53 Impression: No acute cardiopulmonary abnormality. Discharge Plan Discharge Clinical Impression: Viral upper respiratory tract infection with cough, Essential (primary) hypertension Patient Disposition: Home Condition: Stable Instructions: Antibiotic Form, Viral Syndrome (ED) Patient Language: Belarusian Prescriptions: No Action Pavblu 2 mg/0.05 mL syringe Jardiance 10 mg tablet 10 mg PO DAILY Qty: 1 0RF calcium carbonate [Calcium 600] 600 mg calcium (1,500 mg) tablet 600 mg PO DAILY Qty: 30 0RF coenzyme Q10 [Co Q-10] 10 mg capsule 10 mg PO ONCE Qty: 1 0RF cholecalciferol (vitamin D3) [Vitamin D3] 50 mcg (2,000 unit) capsule 50 mcg PO DAILY Qty: 1 0RF hydrocortisone [Anti-Itch (HC)] 1 % cream 1 applic topical BID PRN (Reason: itching) Qty: 28.35 0RF Eylea 2 mg/0.05 mL solution 2 mg intravitreal ONCE miconazole nitrate [Monistat 3] 4 % (200 mg)- 2 % (9 gram) comb pack,prefill appl, cream See Rx Instructions vaginal .COMPLEX Qty: 24 0RF Rx Instructions: put 1 supp in vagina at bedtime x 3nites;use cream on area outside vagina 2X/day for up to 7days vaginal PreserVision AREDS [id number] vxrm-gv-ohch capsule 1 cap PO BID Eliquis 5 mg tablet 5 mg PO BID diltiazem HCl 120 mg capsule,extended release 24hr 120 mg PO DAILY magnesium oxide 400 mg magnesium capsule 400 mg PO DAILY multivitamin Tablet 1 tablet PO DAILY spironolactone 25 mg tablet 25 mg PO BID pantoprazole 40 mg tablet,delayed release (DR/EC) 40 mg PO BID Qty: 180 1RF lancing device with lancets [Accu-Chek FastClix Lancing Dev] Kit See Rx Instructions .ROUTE .COMPLEX Qty: 1 0RF Dose Instruction: USE DIRECTED Rx Instructions: USE DIRECTED mupirocin 2 % ointment 1 applic topical BID Qty: 22 0RF valacyclovir 500 mg tablet See Rx Instructions .ROUTE .COMPLEX PRN (Reason: cold sores) Qty: 30 3RF Dose Instruction: TAKE 1 TABLET BY MOUTH TWICE DAILY Rx Instructions: TAKE 1 TABLET BY MOUTH TWICE DAILY PRN; metformin 750 mg tablet extended release 24 hr See Rx Instructions .ROUTE .COMPLEX Qty: 180 1RF Dose Instruction: TAKE 1 TABLET BY MOUTH TWICE DAILY Rx Instructions: TAKE 1 TABLET BY MOUTH TWICE DAILY mirabegron [Myrbetriq] 25 mg tablet extended release 24 hr 25 mg PO DAILY Qty: 90 1RF buspirone 5 mg tablet See Rx Instructions .ROUTE .COMPLEX Qty: 180 1RF Dose Instruction: TAKE 1 TABLET BY MOUTH TWICE DAILY Rx Instructions: TAKE 1 TABLET BY MOUTH TWICE DAILY ferrous sulfate [FeroSul] 325 mg (65 mg iron) tablet See Rx Instructions .ROUTE .COMPLEX Qty: 90 1RF Dose Instruction: TAKE 1 TABLET BY MOUTH DAILY Rx Instructions: TAKE 1 TABLET BY MOUTH DAILY atorvastatin 20 mg tablet 20 mg PO DAILY Qty: 90 1RF alendronate 70 mg tablet See Rx Instructions .ROUTE .COMPLEX Qty: 12 0RF Dose Instruction: TAKE 1 TABLET BY MOUTH WEEKLY Rx Instructions: TAKE 1 TABLET BY MOUTH WEEKLY (DME) lancets [Accu-Chek Fastclix Lancet Drum] [facility] See Rx Instructions .ROUTE .COMPLEX Qty: 102 1RF Dose Instruction: USE DIRECTED DAILY Rx Instructions: USE to check blood glucose 1xday DIRECTED DAILY montelukast 10 mg tablet See Rx Instructions .ROUTE .COMPLEX Qty: 90 0RF Dose Instruction: TAKE 1 TABLET BY MOUTH DAILY Rx Instructions: TAKE 1 TABLET BY MOUTH DAILY (DME) OneTouch Verio test strips Strip See Rx Instructions .ROUTE .COMPLEX Qty: 100 1RF Dose Instruction: CHECK BLOOD GLUCOSE ONCE DAILY Rx Instructions: CHECK BLOOD GLUCOSE ONCE DAILY silver sulfadiazine [SSD] 1 % cream See Rx Instructions .ROUTE .COMPLEX Qty: 85 0RF Dose Instruction: APPLY TO THE AFFECTED AREA TWICE DAILY Rx Instructions: APPLY TO THE AFFECTED AREA TWICE DAILY tramadol 50 mg tablet 100 mg PO Q8H PRN (Reason: pain) Qty: 180 0RF sertraline 100 mg tablet See Rx Instructions .ROUTE .COMPLEX Qty: 90 0RF Dose Instruction: TAKE ONE TABLET EVERY DAY(IN ADDITION WITH 50MG TABLET) Rx Instructions: TAKE ONE TABLET EVERY DAY(IN ADDITION WITH 50MG TABLET) sertraline 50 mg tablet See Rx Instructions .ROUTE .COMPLEX Qty: 90 0RF Dose Instruction: TAKE ONE TABLET BY MOUTH EVERY DAY(ALONG WITH 100MG TABLET) Rx Instructions: TAKE ONE TABLET BY MOUTH EVERY DAY(ALONG WITH 100MG TABLET) alprazolam 0.25 mg tablet 0.25 mg PO TID PRN (Reason: anxiety) Qty: 90 0RF Follow-up/Referrals: Karis Murcia APRN [Primary Care Provider, Internal Medicine] - 09/02/25 Time of Disposition: 11:59
[2025-09-01 11:29] VITALS: BP 147/75; PULSE 88; RESP 16; TEMP 36.2; O2SAT 99
== END 2025-09-01 12:06 | disposition home or self-care (01) ==
PROVIDERS: Emergency Provider Registered Nurse; PCP Nurse Practitioner Family
DX: R06.9 Unspecified abnormalities of breathing (principal); I10 Essential (primary) hypertension; I11.0 Hypertensive heart disease with heart failure; I50.9 Heart failure, unspecified; E11.9 Type 2 diabetes mellitus without complications; Z79.84 Long term (current) use of oral hypoglycemic drugs; Z86.73 Personal history of transient ischemic attack (TIA), and cerebral infarction without residual deficits; I48.91 Unspecified atrial fibrillation; I35.0 Nonrheumatic aortic (valve) stenosis; K21.9 Gastro-esophageal reflux disease without esophagitis; R01.1 Cardiac murmur, unspecified; M15.9 Polyosteoarthritis, unspecified; Z79.01 Long term (current) use of anticoagulants
CPT/HCPCS: 71046; 99213; G0463